=== PATIENT | female | born 1960 | race Caucasian/White ===

== ENCOUNTER 2025-02-17 16:08 | Inpatient (IN) | payer OTHER ==
--- NOTE | 2025-02-17 17:10 | ED ---
General Adult HPI - General Chief complaint: Recheck/Abnormal Lab/Rx Stated complaint: Transfer-Abn Labs Time Seen by Provider: 02/17/25 16:11 Source: patient, RN/MD, EMS, RN notes reviewed Mode of arrival: EMS Limitations: no limitations - History of Present Illness Initial comments: Patient is a 64-year-old female present to the emergency department as a transfer from [facility]. Patient had ultrasound done as an outpatient concerning for mass and was sent to the emergency department there. Patient requested transfer here. They did do further imaging including CT scan. There was concern for pulmonary embolism on the right side, IVC clot and mass involving the right hepatic and adrenal region. Heparin was started. Patient only has mild discomfort at times in the abdomen with pushing. No other complaints except for patient does admit to having some mild exertional dyspnea at times - Related Data Allergies Allergy/AdvReac Type Severity Reaction Status Date / Time No Known Allergies Allergy Verified 02/17/25 16:16 Review of Systems ROS Statement: Those systems with pertinent positive or pertinent negative responses have been documented in the HPI. ROS Other: All systems not noted in ROS Statement are negative. Constitutional: Denies: fever Eyes: Denies: eye pain ENT: Denies: ear pain Respiratory: Reports: as per HPI Gastrointestinal: Reports: as per HPI Musculoskeletal: Denies: back pain Past Medical History Past Medical History: No Reported History Past Surgical History: Section Smoking Status: Current every day smoker Past Alcohol Use History: Daily Past Drug Use History: None Reported General Exam Limitations: no limitations General appearance: alert, in no apparent distress Head exam: Present: normocephalic Eye exam: Present: normal appearance Neck exam: Present: normal inspection Respiratory exam: Present: normal lung sounds bilaterally Cardiovascular Exam: Present: regular rate, normal rhythm GI/Abdominal exam: Present: organomegaly (Hepatomegaly). Absent: tenderness Extremities exam: Present: normal inspection. Absent: pedal edema, calf tenderness Neurological exam: Present: alert Psychiatric exam: Present: normal affect, normal mood Skin exam: Present: normal color Course Vital Signs 02/17/25 02/17/25 16:09 16:19 Temperature 98.6 F Pulse Rate 82 Respiratory 16 16 Rate Blood Pressure 165/93 O2 Sat by Pulse 97 Oximetry Medical Decision Making - Medical Decision Making Was pt. sent in by a medical professional or institution (, PA, [facility]ER, urgent care, hospital, or [facility]...) When possible be specific @ -Patient sent from [facility] Did you speak to anyone other than the patient for history (EMS, parent, family, police, friend...)? What history was obtained from this source @ -Transferring physician Did you review nursing and triage notes (agree or disagree)? Why? @ -I reviewed and agree with nursing and triage notes Were old charts reviewed (outside hosp., previous admission, EMS record, old EKG, old radiological studies, urgent care reports/EKG's, [facility] records)? Report findings @ -Chart reviewed from [facility] Differential Diagnosis (chest pain, altered mental status, abdominal pain women, abdominal pain men, vaginal bleeding, weakness, fever, dyspnea, syncope, headache, dizziness, GI bleed, back pain, seizure, CVA, palpatations, mental health, musculoskeletal)? @ -Differential Abdominal Pain Women: Appendicitis, Cholecystitis, diverticulosis, ischemic bowel, pancreatitis, hepatitis, UTI, gastroenteritis, AAA, incarcerated hernia, bowel obstruction, constipation, inflammatory bowel, hepatitis, peptic ulcer disease, splenic infarction, perforated viscus, vulvitis, ovarian torsion, PID, kidney stone, placenta abruption, this is not meant to be an all-inclusive list Differential Dyspnea: Coronary syndrome, arrhythmia, tamponade, asthma, COPD, pulmonary embolism, pneumonia, pneumothorax, pulmonary effusion, anaphylaxis, diabetic ketoacidosis, flailed chest, pulmonary contusion, diaphragmatic rupture, anemia, neuromuscular, this is not meant to be an all-inclusive list. EKG interpreted by me (3pts min.). @ -As above X-rays interpreted by me (1pt min.). @ -None done CT interpreted by me (1pt min.). @ -None done U/S interpreted by me (1pt. min.). @ -None done What testing was considered but not performed or refused? (CT, X-rays, U/S, labs)? Why? @ -None What meds were considered but not given or refused? Why? @ -None Did you discuss the management of the patient with other professionals (professionals i.e. , DAILY, SHACKLER, lab, RT, psych nurse, social media senior associate, motor coach operator, teacher, facilities officer, disability case manager)? Give summary @ -[facility] to admit covering Dr. Elizabeth Was smoking cessation discussed for >3mins.? @ -No Was critical care preformed (if so, how long)? @ -31 minutes critical care time Were there social determinants of health that impacted care today? How? (Homelessness, low income, unemployed, alcoholism, drug addiction, transportation, low edu. Level, literacy, decrease access to med. care, longterm, rehab)? @ -No Was there de-escalation of care discussed even if they declined (Discuss DNR or withdrawal of care, Hospice)? DNR status @ -No What co-morbidities impacted this encounter? (DM, HTN, Smoking, COPD, CAD, Can cer, CVA, ARF, Chemo, Hep., AIDS, mental health diagnosis, sleep apnea, morbid obesity)? @ -None Was patient admitted / discharged? Hospital course, mention meds given and route, prescriptions, significant lab abnormalities, going to OR and other pertinent info. @ -Patient presents with new onset abdominal mass involving liver and adrenal region. Patient also has IVC clot and pulmonary embolism. Patient will be admitted with several consultants. Admission orders written. Patient updated. Undiagnosed new problem with uncertain prognosis? @ -No Drug Therapy requiring intensive monitoring for toxicity (Heparin, Nitro, Insulin, Cardizem)? @ -Heparin drip Were any procedures done? @ -No Diagnosis/symptom? @ -Pulmonary embolism, inferior vena cava thrombus, abdominal mass Acute, or Chronic, or Acute on Chronic? @ -Acute, acute, acute Uncomplicated (without systemic symptoms) or Complicated (systemic symptoms)? @ -Default Side effects of treatment? @ -No Exacerbation, Progression, or Severe Exacerbation? @ -No Poses a threat to life or bodily function? How? (Chest pain, USA, VT, pneumonia, PE, COPD, DKA, ARF, appy, cholecystitis, CVA, Diverticulitis, Homicidal, Suicidal, threat to staff... and all critical care pts) @ -Threat to pulmonary function and life Critical Care Time Critical Care Time: Yes Disposition Clinical Impression: Pulmonary embolism Disposition: ADMITTED IP TO THIS HOSP Condition: Serious Is patient prescribed a controlled substance at d/c from ED?: No Referrals: Rafaela Elizabeth MD [Primary Care Provider] - 1-2 days Time of Disposition: 17:10
[2025-02-17] MEDS ORDERED: NALOXONE 0.4 MG/ML 1 ML VIAL IV PRN (17:11)
[2025-02-17] MEDS: HEPARIN SOD,PORK IN 0.45% NACL 25,000 UNIT in 0.45% NACL 1 250ML.BAG IV SCH (17:31)
[2025-02-17] MEDS: PANTOPRAZOLE 40 MG/10 ML VIAL IV SCH (17:31)
[2025-02-18] MEDS: HEPARIN SODIUM 1,000 UN/ML (10ML VL) IV PRN (01:58)
--- NOTE | 2025-02-18 04:33 | P.CNPUL ---
History of Present Illness Consult date: 02/18/25 Requesting physician: Jae Packer Reason for consult: pulmonary embolism Chief complaint: Transfer from [facility] History of present illness: Patient is a 64-year-old female with past medical history significant for alcohol abuse, she drinks 6-7 beers per day. She also smokes cigarettes 3-4 cigarettes per day, previously more. Over 40 year pack-year smoking history. Recently, obtained medical insurance and followed up with a primary care provider. She had some abdominal distention, and was sent for an abdominal ultrasound, which was apparently concering for mass. Increasing abdominal distention first noticed 3 or 4 months ago. Sent to [facility] for further evaluation. Apparently, she did have a CT of the abdomen/pelvis remarkable for large heterogenous enhancing posterior right upper quadrant mass measuring up to 19 cm. Some focal regions of hyperattenuation suggesting intralesional hemorrhage. No other hemorrhage identified. Loss of fat plane wi th posterior right hepatic lobe and possible invasion. Reportedly, difficult to distinguish origin of mass due to mass effect on surrounding structures. Additional, right infrahilar heterogenous enhancing lesion which could represent metastasis. Trace bilateral pleural effusions. A filling defect was noted within the intrahepatic IVC. Dedicated chest CT angiogram remarkable for heterogenous filling appearance of the distal right main pulmonary artery extending to the right lower lobe segmental and subsegmental arteries. Findings were concerning for nonocclusive acute pulmonary emboli. No CT evidence of heart strain. Mediastinal and right hilar adenopathy highly concerning for metastasis was noted. Reportedly, right hilar mass causing abrupt cut off of the right lower lobe bronchus. Only the reports from the above-mentioned imaging are available, no CD is available for review. Patient was started on IV heparin and transferred to our facility. She is currently being evaluated in the emergency department, room 4. She is on room air. Not in respiratory distress. Denies shortness of breath, cough, hemoptysis, palpitations, syncopal events, chest pain. Endorses abdominal fullness and distention. Some tenderness with palpation of the right abdomen. Denies any nausea or vomiting, diarrhea, melena, hematochezia. Appetite has been good. Denies weight loss. Vital signs are stable. Review of Systems REVIEW OF SYSTEMS: CONSTITUTIONAL: Denies weight loss. EYES: Denies change in vision. EARS, NOSE, MOUTH, THROAT: Denies headaches, denies sore throat. CARDIOVASCULAR: Denies chest pain, palpitations or syncopal episodes. RESPIRATORY: See HPI GASTROINTESTINAL: See HPI GENITOURINARY: Denies hematuria, denies infections. MUSKULOSKELETAL: Denies pain, denies swelling. INTEGUMENTARY: Denies rash, denies eczema. NEUROLOGICAL: Denies recent memory loss, no recent seizure activity. PSYCHIATRIC: Denies anxiety, denies depression. HEMATOLOGIC/LYMPHATIC: Denies anemia, denies enlarged lymph node Past Medical History Past Medical History: No Reported History Past Surgical History: Section Smoking Status: Current every day smoker Past Alcohol Use History: Daily Past Drug Use History: None Reported Medications and Allergies Home Medications Medication Instructions Recorded Confirmed Type traZODone HCL [Desyrel] 50 - 100 mg PO DIRECTED PRN 02/17/25 02/17/25 History Allergies Allergy/AdvReac Type Severity Reaction Status Date / Time No Known Allergies Allergy Verified 02/17/25 17:27 Physical Exam Vitals: Vital Signs Temp Pulse Resp BP Pulse Ox 02/18/25 01:40 82 20 162/88 97 02/17/25 23:00 77 16 173/98 98 02/17/25 20:00 92 20 155/98 96 02/17/25 17:39 87 16 152/85 95 02/17/25 16:19 16 02/17/25 16:09 98.6 F 82 16 165/93 97 Intake and Output 02/17/25 02/17/25 02/18/25 14:59 22:59 06:59 Intake Total 63.136 Balance 63.136 Intake: Intake, IV Titration 63.136 Amount Heparin Sod,Pork in 0.45% 63.136 NaCl 25,000 unit In 0.45 % NaCl 1 250ml.bag @ 12 UNITS/KG/HR 7.457 mls/hr IV .Q24H [facility] Rx#: [id number] Other: Weight 62.142 kg GENERAL EXAM: Alert, 64-year-old female, sitting at the edge of the bed, comfortable in no apparent distress. HEAD: Normocephalic and atraumatic EYES: Normal reaction of pupils, equal size. NOSE: Clear with pink turbinates. THROAT: No erythema or exudates. NECK: No masses, no JVD. CHEST: No chest wall deformity. LUNGS: Equal air entry with no crackles, wheeze, rhonchi or dullness. On room air. No conversational dyspnea or accessory muscle use.. CVS: S1 and S2 normal with no audible murmur, regular rhythm. No extra heart sounds ABDOMEN: Abdominal distention with palpable mass. No guarding or rigidity. SPINE: No scoliosis or deformity SKIN: No rashes CENTRAL NERVOUS SYSTEM: No focal deficits, tone is normal in all 4 extremities. EXTREMITIES: There is no peripheral edema, clubbing, or cyanosis. Peripheral pulses are intact. Assessment and Plan Assessment: Multiple pulmonary emboli within the distal right main pulmonary artery extending to the right lower lobe segmental and subsegmental arteries. No CT evidence of right-sided heart strain. Additional, filling defect within the intrahepatic IVC. Mediastinal and hilar adenopathy with enlarged right hilar mass measuring 4.5 cm causing abrupt cut off of the right mainstem bronchus Nonspecific anterior right upper lobe 4 mm pulmonary nodule, could represent additional metastasis. Trace bilateral pleural effusions Large heterogenous right upper quadrant abdominal mass measuring up to 19 cm. Focal regions of hypoattenuation suggesting intralesional hemorrhage. Per the CT report difficult to distinguish origin of mass due to mass effect of surrounding structures. Daily alcohol use, chronic 6 to 7, 12 ounce beers per day drinker Chronic tobacco use, with over [id number] history Plan: Patient denies any pulmonary complaints Currently on room air Continue with IV heparin per protocol Patient is going to undergo workup for malignancy Could potentially undergo tissue sampling of patient's large abdominal mass Only CT reports are currently available, awaiting CD from [facility]. Case will reviewed with Dr. Cross Oncology is consulted Vascular surgery also consulted We will continue to follow, and additional recommendations will be forthcoming I have personally seen and examined the patient, performed the documentation and the assessment and plan as written. Number of minutes spent on the visit:20 Time with Patient: Greater than 30
[2025-02-18 04:36] LABS: Basophils # (A) 0.02 10*3/uL (0.00-0.10); Basophils % (A) 0.6 %; Eosinophils # (A) 0.16 10*3/uL (0.04-0.35); Eosinophils % (A) 4.5 %; HCT 41.4 % (37.2-46.3); HGB 13.3 g/dL (12.0-15.0); Lymphocytes # (A) 0.66 10*3/uL (0.90-5.00); Lymphocytes % (A) 18.5 %; MCH 25.2 pg (27.0-32.0); MCHC 32.1 g/dL (32.0-37.0); MCV 78.4 fL (80.0-97.0); Monocytes # (A) 0.43 10*3/uL (0.20-1.00); Monocytes % (A) 12.1 %; Neutrophils # (A) 2.28 10*3/uL (1.80-7.70); Neutrophils % (A) 64.0 %; Platelet Count 305 10*3/uL (140-440); RBC 5.28 10*6/uL (4.10-5.20); RDW 16.5 % (11.5-14.5); WBC 3.56 10*3/uL (4.50-10.00)
[2025-02-18 04:41] LABS: INR 1.1 (<1.2); Prothrombin Time 12.4 sec (10.0-12.5)
[2025-02-18 05:04] LABS: ALT 15 U/L (4-34); AST 51 U/L (14-36); African American GFR (CKD) >90 (>60 ml/min/1.73 sqM); Albumin 3.5 g/dL (3.5-5.0); Alkaline Phosphatase 81 U/L (38-126); Amylase 43 U/L (30-110); Anion Gap 10 mmol/L; Anion Gap 9 mmol/L; Blood Urea Nitrogen 5 mg/dL (7-17); Calcium 8.9 mg/dL (8.4-10.2); Calcium 9.0 mg/dL (8.4-10.2); Carbon Dioxide 26 mmol/L (22-30); Carbon Dioxide 27 mmol/L (22-30); Chloride 95 mmol/L (98-107); Glucose 79 mg/dL (74-99); Glucose 80 mg/dL (74-99); Lipase 132 U/L (23-300); Magnesium 1.6 mg/dL (1.6-2.3); Non-African American GFR(CKD) >90 (>60 ml/min/1.73 sqM); Potassium 4.1 mmol/L (3.5-5.1); Sodium 131 mmol/L (137-145); Total Protein 5.9 g/dL (6.3-8.2)
--- NOTE | 2025-02-18 08:14 | XR ---
EXAMINATION TYPE: XR chest 1V portable DATE OF EXAM: 02/18/2025 5:23 AM COMPARISON: None. CLINICAL INDICATION: Female, 64 years old with history of lung mass, TECHNIQUE: XR chest 1V portable views of the chest are obtained. FINDINGS: Demonstrated are scattered senescent parenchymal change. There is no evidence for focal infiltrate. The heart is stable. Hilar and mediastinal structures are within normal limits. Degenerative changes are seen of the dorsal spine. IMPRESSION: 1. Chronic changes without evidence for acute pulmonary disease. [facility], , 02/18/2025 8:12 AM
--- NOTE | 2025-02-18 10:36 | P.GSCN ---
History of Present Illness Consult date: 02/18/25 Reason for Consult: IVC thrombus Requesting physician: Jae Packer History of present illness: This is a pleasant 64-year-old female with medical history including daily smoker and daily alcohol use 6-7 beers a day who recently had gone to see her PCP after obtaining insurance and was concerned with abdominal distention and bloating. She was reportedly sent for abdominal ultrasound that showed a abdominal mass. She was told to go to the emergency department and had gone to [facility]. There she underwent imaging, chest CTA which was concerning for pulmonary embolism meeting asked and all and right hilar adenopathy right upper lobe 4 mm pulmonary nodule trace bilateral pleural effusions and CAT scan of the abdomen pelvis with contrast reported large heterogeneous enhancing right upper quadrant mass measuring up to 19 cm with focal regions of hyperattenuating suggesting intralesional hemorrhage. Also right infrahilar heterogeneous enhancing lesion and filling defect within the intrahepatic IVC corresponding to recent ultrasound favored to represent thrombus. Vascular surgery was consulted for IVC thrombus. Patient currently is without any complaints. States that [facility] wanted to transfer her down to [facility] however she did not want to go there secondary to her passing away there about a year ago and requested to be transferred to [facility]. [facility] and [facility] to this hospital. She currently denies any abdominal pain, chest pain, shortness of breath, nausea or vomiting. Denies any significant weight loss recently. Does have lower extremity swelling. Patient was started on IV heparin drip and transferred to this facility, remains on IV heparin drip at this time. Review of Systems A 14 point review systems was completed all pertinent positives and negatives as stated in the HPI. Past Medical History Past Medical History: No Reported History Past Surgical History: Section Smoking Status: Current every day smoker Past Alcohol Use History: Daily Past Drug Use History: None Reported Medications and Allergies Home Medications Medication Instructions Recorded Confirmed Type traZODone HCL [Desyrel] 50 - 100 mg PO DIRECTED PRN 02/17/25 02/17/25 History Allergies Allergy/AdvReac Type Severity Reaction Status Date / Time No Known Allergies Allergy Verified 02/17/25 17:27 Surgical - Exam Vital Signs Temp Pulse Resp BP Pulse Ox 98.6 F 82 16 165/93 97 02/17/25 16:09 02/17/25 16:09 02/17/25 16:09 02/17/25 16:09 02/17/25 16:09 General appearance: The patient is alert, oriented, appears in no acute distress. HET: Head is normocephalic and atraumatic. Pupils are equal and reactive. Neck: Supple. Heart: Regular. Lungs: Equal expansion, normal respiratory effort. Abdomen: Soft, palpable mass, nondistended. Extremities: Normal skin color and turgor. Lower extremity edema, left greater than right. Neurological: No focal deficits. Strength and sensation are grossly intact. Results - Labs 02/18/25 04:25 02/18/25 04:25 Abnormal Lab Results - Last 24 Hours (Table) 02/18/25 02/18/25 02/18/25 Range/Units 04:25 04:25 04:25 WBC 3.56 L (4.50-10.00) 10*3/uL RBC 5.28 H (4.10-5.20) 10*6/uL MCV 78.4 L (80.0-97.0) fL MCH 25.2 L (27.0-32.0) pg MPV 8.9 L (9.5-12.2) fL Lymphocytes # 0.66 L (0.90-5.00) 10*3/uL Sodium 131 L 131 L (137-145) mmol/L Chloride 95 L 95 L (98-107) mmol/L BUN 5 L 5 L (7-17) mg/dL Creatinine 0.44 L 0.41 L (0.52-1.04) mg/dL AST 51 H (14-36) U/L Total Protein 5.9 L (6.3-8.2) g/dL Diabetes panel 02/18/25 02/18/25 Range/Units 04:25 04:25 Sodium 131 L 131 L (137-145) mmol/L Potassium 4.1 4.1 (3.5-5.1) mmol/L Chloride 95 L 95 L (98-107) mmol/L Carbon Dioxide 26 27 (22-30) mmol/L BUN 5 L 5 L (7-17) mg/dL Creatinine 0.44 L 0.41 L (0.52-1.04) mg/dL Glucose 80 79 (74-99) mg/dL Calcium 8.9 9.0 (8.4-10.2) mg/dL AST 51 H (14-36) U/L ALT 15 (4-34) U/L Alkaline Phosphatase 81 (38-126) U/L Total Protein 5.9 L (6.3-8.2) g/dL Albumin 3.5 (3.5-5.0) g/dL Calcium panel 02/18/25 02/18/25 Range/Units 04:25 04:25 Calcium 8.9 9.0 (8.4-10.2) mg/dL Albumin 3.5 (3.5-5.0) g/dL Pituitary panel 02/18/25 02/18/25 Range/Units 04:25 04:25 Sodium 131 L 131 L (137-145) mmol/L Potassium 4.1 4.1 (3.5-5.1) mmol/L Chloride 95 L 95 L (98-107) mmol/L Carbon Dioxide 26 27 (22-30) mmol/L BUN 5 L 5 L (7-17) mg/dL Creatinine 0.44 L 0.41 L (0.52-1.04) mg/dL Glucose 80 79 (74-99) mg/dL Calcium 8.9 9.0 (8.4-10.2) mg/dL Adrenal panel 02/18/25 02/18/25 Range/Units 04:25 04:25 Sodium 131 L 131 L (137-145) mmol/L Potassium 4.1 4.1 (3.5-5.1) mmol/L Chloride 95 L 95 L (98-107) mmol/L Carbon Dioxide 26 27 (22-30) mmol/L BUN 5 L 5 L (7-17) mg/dL Creatinine 0.44 L 0.41 L (0.52-1.04) mg/dL Glucose 80 79 (74-99) mg/dL Calcium 8.9 9.0 (8.4-10.2) mg/dL Total Bilirubin 0.9 (0.2-1.3) mg/dL AST 51 H (14-36) U/L ALT 15 (4-34) U/L Alkaline Phosphatase 81 (38-126) U/L Total Protein 5.9 L (6.3-8.2) g/dL Albumin 3.5 (3.5-5.0) g/dL Assessment and Plan Assessment: 1. IVC thrombus per CT abdomen pelvis at outside facility 2. Pulmonary embolism 3. Large right upper quadrant abdominal mass measuring 19 cm 4. Right infrahilar heterogeneous enhancing lesion 5. Mediastinal and right hilar adenopathy 6. Anterior right upper lobe 4 mm pulmonary nodule 7. Trace bilateral pleural effusions 8. Current daily smoker 9. Daily alcohol use, 6-7 beers daily Plan: Continue with IV heparin infusion. Due to extensive findings on CT angiogram chest and CT abdomen and pelvis with large abdominal mass would recommend patient get transferred to higher level care tertiary center for further evaluation and management multiple complex findings CT imaging. This was discussed with patient who is agreeable to transfer. Also discussed with primary medical team. Continue with recommendations from other consultants. Thank you for this consultation. The impression and plan of care has been dictated as directed. I performed a history and examination of this patient, discussed the same with the dictator. I agree with the dictator's note ,documented as a scribe. Any additional findings or plans will be noted.
[2025-02-18] MEDS: diazePAM 2 MG TAB PO SCH (11:32)
[2025-02-18] MEDS: NICOTINE 21MG/24HR PATCH TRANSDERM SCH (11:33)
[2025-02-18] MEDS: IPRATROPIUM-ALBUTEROL 3 ML NEB INHALATION SCH (11:43)
[2025-02-18] MEDS: BUDESONIDE 1 MG/2 ML NEBU INHALATION SCH (11:44)
--- NOTE | 2025-02-18 12:40 | P.HPIM ---
History of Present Illness H&P Date: 02/18/25 Chief Complaint: Abdominal mass Pleasant 64-year-old patient who follows with Dr. Rafaela Elizabeth. Patient did not have insurance had noticed that her abdomen had been increasing in size for about 2 months. Appetite is fair. No change in bowel pattern. Occasionally short of breath strictly doing stairs. Some lower extremity edema for about a month. She got insurance and finally decided to see a family doctor. daily smoker and daily alcohol use 6-7 beers a day . sent for abdominal ultrasound that showed a abdominal mass. She was told to go to the emergency department and had gone to [facility]. - chest CTA which was concerning for pulmonary embolism right hilar adenopathy right upper lobe 4 mm pulmonary nodule trace bilateral pleural effusions and CAT scan of the abdomen pelvis with contrast reported large heterogeneous enhancing right upper quadrant mass measuring up to 19 cm with focal regions of hyperattenuating suggesting intralesional hemorrhage. Also right infrahilar heterogeneous enhancing lesion and filling defect within the intrahepatic IVC corresponding to recent ultrasound favored to represent thrombus. Vascular surgery was consulted States that [facility] wanted to transfer her down to [facility] however she did not want to go there secondary to her passing away there about a year ago and requested to be transferred to [facility]. She currently denies any abdominal pain, chest pain,. started on IV heparin drip and transferred to this facility Patient seen and daughter at the bedside. Review of systems: GEN.: None EYES: None HEENT: None NECK: None RESPIRATORY: As above CARDIOVASCULAR: None GASTROINTESTINAL: As above GENITOURINARY: None MUSCULOSKELETAL: None LYMPHATICS: None HEMATOLOGICAL: None PSYCHIATRY: None NEUROLOGICAL: None Social history: Lives alone. Retired from factory. Smokes about a pack a day for close to 40 years and drinks about 6-7 beers a day for close to 40 years. Physical examination: VITAL SIGNS: 98.6, 77, 16, 161 x 89, 98% room air GENERAL: BMI 24.3, sitting bed awake not in distress. EYES: Pupils equal. Conjunctiva aries l. HEENT: External appearance of nose and ears normal, oral cavity grossly normal. NECK: JVD not raised; masses not palpable. HEART: First and second heart sounds are normal; some edema. LUNGS: Respiratory rate increased, diminished breath sound. ABDOMEN: [Soft, upper abdomen ill-defined mass, bowel sounds present PSYCH: Alert and oriented x3; mood and affect aries l. MUSCULOSKELETAL:No Clubbing/cyanosis;muscles-grossly intact NEUROLOGICAL: Cranial nerves grossly intact; no facial asymmetry, power and sensation grossly intact. LYMPHATICS: No lymph nodes palpable in the axilla and neck INVESTIGATIONS, reviewed in the clinical context: February 18, 2025: White count 3.5 hemoglobin 13.3 platelets 305 sodium 131 potassium 4.1 BUN 5 creatinine 0.4 Chest x-ray film personally reviewed by me-hyperinflation. Prominent hilum Review [facility]: CT angio chest PE protocol: Heterogeneous filling appearance of the distal right main pulmonary artery extending into the right lower lobe segmental and subsegmental pulmonary arteries. Concerning for nonocclusive acute pulm embolism. No evidence of right heart strain. Mediastinal right hilar adenopathy. Right hilar adenopathy causing abrupt cut off of the right lower lobe bronchus. Trace bilateral pleural effusions. CT abdomen pelvis with contrast: Large heterogeneous enhancing posterior right upper quadrant mass measuring 19 cm. Some focal regions of hypoattenuating suggesting intralesional hemorrhage. This causes mass effect on the surrounding structures. Difficult to distinguish origin of mass. Right infrahilar heterogeneous enhancing lesion partially visualized. Filling defect within the intrahepatic IVC corresponding to recent ultrasound. Sigmoid diverticulosis. Assessment plan - Acute pulmonary embolism secondary to underlying metastatic disease No evidence of heart strain on CT scan. IV heparin per protocol - IV heparin monitoring per protocol - Right upper quadrant mass with possible involvement of the liver and pulmonary lymphadenopathy. Metastatic disease. Primary unknown. Oncology consulted. - Inferior vena cava thrombus Vascular surgery consulted. IV heparin. Patient does not want to be transferred to outside hospital. - COPD in t current smoker. Moderate DuoNeb 3 times daily. Nebulized Pulmicort - Chronic nicotine dependence cigarette smoker Nicotine patch 21 - Alcohol use disorder normally drinks 6-7 beers a day. CIWA scale. Valium 2 mg twice daily for DT prophylaxis Care was discussed with patient son and daughter at bedside. Questions answered. Consultations to vascular, pulmonary, oncology. Past Medical History Past Medical History: No Reported History Past Surgical History: Section Smoking Status: Current every day smoker Past Alcohol Use History: Daily Past Drug Use History: None Reported Medications and Allergies Home Medications Medication Instructions Recorded Confirmed Type traZODone HCL [Desyrel] 50 - 100 mg PO DIRECTED PRN 02/17/25 02/17/25 History Allergies Allergy/AdvReac Type Severity Reaction Status Date / Time No Known Allergies Allergy Verified 02/17/25 17:27 Physical Exam Vitals: Vital Signs Temp Pulse Resp BP Pulse Ox 02/18/25 04:49 77 16 161/89 98 02/18/25 01:40 82 20 162/88 97 02/17/25 23:00 77 16 173/98 98 02/17/25 20:00 92 20 155/98 96 02/17/25 17:39 87 16 152/85 95 02/17/25 16:19 16 02/17/25 16:09 98.6 F 82 16 165/93 97 Intake and Output 02/17/25 02/18/25 02/18/25 22:59 06:59 14:59 Intake Total 63.136 Balance 63.136 Intake: Intake, IV Titration 63.136 Amount Heparin Sod,Pork in 0.45% 63.136 NaCl 25,000 unit In 0.45 % NaCl 1 250ml.bag @ 12 UNITS/KG/HR 7.457 mls/hr IV .Q24H [facility] Rx#: [id number] Other: Weight 62.142 kg Results CBC & Chem 7: 02/18/25 04:25 02/18/25 04:25 Labs: Abnormal Lab Results - Last 24 Hours (Table) 02/18/25 02/18/25 02/18/25 Range/Units 04:25 04:25 04:25 WBC 3.56 L (4.50-10.00) 10*3/uL RBC 5.28 H (4.10-5.20) 10*6/uL MCV 78.4 L (80.0-97.0) fL MCH 25.2 L (27.0-32.0) pg MPV 8.9 L (9.5-12.2) fL Lymphocytes # 0.66 L (0.90-5.00) 10*3/uL Sodium 131 L 131 L (137-145) mmol/L Chloride 95 L 95 L (98-107) mmol/L BUN 5 L 5 L (7-17) mg/dL Creatinine 0.44 L 0.41 L (0.52-1.04) mg/dL AST 51 H (14-36) U/L Total Protein 5.9 L (6.3-8.2) g/dL
--- NOTE | 2025-02-18 15:22 | P.CONS ---
History of Present Illness - Reason for Consult Consult date: 02/18/25 - History of Present Illness Patient is a 64-year-old female with significant medical history for alcohol abuse, former tobacco user. She is a transfer from [facility]. She arrived there originally for concerns of abdominal distention. Patient had ultrasound concerning for abdominal mass. CT of abdomen pelvis CT of the abdomen/pelvis remarkable for large heterogenous enhancing posterior right upper quadrant mass measuring up to 19 cm. Some focal regions of hyperattenuation suggesting intralesional hemorrhage. No other hemorrhage identified. However it is difficult to distinguish origin of mass due to mass effect on surrounding structures. Chest CT angiogram remarkable for heterogenous filling appearance of the distal right main pulmonary artery extending to the right lower lobe segmental and subsegmental arteries. Findings were concerning for non-occlusive acute pulmonary emboli. Mediastinal and right hilar adenopathy highly concerning for metastasis was noted. Right upper lobe 4 mm pulmonary nodule was noted as well. She admits to a [id number] smoking history. Currently smokes 3 to 4 cigarettes a day. Drinks 6-7 beers daily. Denies any personal history of cancer. Denies any weight loss, nausea, vomiting, hematuria, hemoptysis, edema. Patient states she has normal bowel movements. She states she has never had a colonoscopy. Last mammogram was over a few years ago, but unsure when exactly. Past Medical History Past Medical History: No Reported History Past Surgical History: Section Smoking Status: Current every day smoker Past Alcohol Use History: Daily Past Drug Use History: None Reported Medications and Allergies Home Medications Medication Instructions Recorded Confirmed Type traZODone HCL [Desyrel] 50 - 100 mg PO DIRECTED PRN 02/17/25 02/17/25 History Allergies Allergy/AdvReac Type Severity Reaction Status Date / Time No Known Allergies Allergy Verified 02/17/25 17:27 Physical Exam Vitals: Vital Signs Temp Pulse Resp BP Pulse Ox 02/18/25 04:49 77 16 161/89 98 02/18/25 01:40 82 20 162/88 97 02/17/25 23:00 77 16 173/98 98 02/17/25 20:00 92 20 155/98 96 02/17/25 17:39 87 16 152/85 95 02/17/25 16:19 16 02/17/25 16:09 98.6 F 82 16 165/93 97 Intake and Output 02/17/25 02/18/25 02/18/25 22:59 06:59 14:59 Intake Total 63.136 80.471 Balance 63.136 80.471 Intake: Intake, IV Titration 63.136 80.471 Amount Heparin Sod,Pork in 0.45% 63.136 80.471 NaCl 25,000 unit In 0.45 % NaCl 1 250ml.bag @ 12 UNITS/KG/HR 7.457 mls/hr IV .Q24H [facility] Rx#: [id number] Other: Weight 62.142 kg General : The patient is alert, oriented, appears in no acute distress. Heart: Regular S1 and S2. Lungs: CTA bilaterally, equal expansion, normal respiratory effort. Abdomen: Soft, palpable mass, non-distended. Extremities: Trace lower extremity edema, left greater than right. Neurological: No focal deficits. Strength and sensation are grossly intact. Results CBC & Chem 7: 02/20/25 05:53 02/18/25 04:25 Labs: Abnormal Lab Results - Last 24 Hours (Table) 02/18/25 02/18/25 02/18/25 Range/Units 04:25 04:25 04:25 WBC 3.56 L (4.50-10.00) 10*3/uL RBC 5.28 H (4.10-5.20) 10*6/uL MCV 78.4 L (80.0-97.0) fL MCH 25.2 L (27.0-32.0) pg MPV 8.9 L (9.5-12.2) fL Lymphocytes # 0.66 L (0.90-5.00) 10*3/uL Sodium 131 L 131 L (137-145) mmol/L Chloride 95 L 95 L (98-107) mmol/L BUN 5 L 5 L (7-17) mg/dL Creatinine 0.44 L 0.41 L (0.52-1.04) mg/dL AST 51 H (14-36) U/L Total Protein 5.9 L (6.3-8.2) g/dL Assessment and Plan Assessment: #. IVC thrombus per CT abdomen pelvis at outside facility #. Pulmonary embolism #. Large right upper quadrant abdominal mass measuring 19 cm #. Right infrahilar heterogeneous enhancing lesion #. Mediastinal and right hilar adenopathy #. Anterior right upper lobe 4 mm pulmonary nodule Continue IV heparin. CT and complete abdominal ultrasound from [facility] reviewed with patient. Will order repeat abdominal U/S. Discussed with patient the need for biopsy to determine origin from mass. Patient agreeable. It is possible that the origin is from lung mass or abdominal mass, or possibly two separate malignancies. Consulted interventional radiology for biopsy, seen by Dr. Treadwell and will go forward with biopsy. Heparin will be placed on hold 4 hours prior to procedure. Vascular surgery was consulted. Recommending transfer. Patient does not want to be transferred to outside hospital. Thank you for this consultation. Will continue to follow throughout duration of admission. Please not hesitate to ask any further questions. Plan: Add: As above. The patient was personally seen, examined, and management plan formulated, with the resident History/physical exam as above New finding of large abdominal mass, of unclear origin. At this time it is not known if this is primary, or represents metastasis. Similarly suspicious right lung lesion, also unknown if primary versus metastatic. Pulmonary embolus, nonocclusive, possibly incidental finding. Patient is on IV heparin. Plan at this time is to proceed with biopsy of the abdominal mass first, as it is more accessible. Case discussed in detail with pulmonary service. We will discuss with IR, if they can access this lesion. If so, the patient will remain on IV heparin, until the biopsy is performed. heparin can be discontinued 2 to 4 hours prior to the procedure. She can resume anticoagulation postprocedure. At this time it is not clear which lesion represents the primary and which, metastasis. In addition there is also possibility of 2 primaries. Depending on the pathology from the abdominal mass, we may need biopsy of the lung lesion. Discussed in detail with pulmonary service. - Radiology report mentions the possibility of hemorrhage in the large abdominal mass. However the patient's hemoglobin is normal. Monitor hemoglobin while on IV heparin.
--- NOTE | 2025-02-19 15:41 | P.PN ---
Subjective Progress Note Date: 02/19/25 Patient is a 64-year-old female with past medical history significant for alcohol abuse, she drinks 6-7 beers per day. She also smokes cigarettes 3-4 cigarettes per day, previously more. Over 40 year pack-year smoking history. Recently, obtained medical insurance and followed up with a primary care provi candelaria. She had some abdominal distention, and was sent for an abdominal ultrasound, which was apparently concering for mass. Increasing abdominal distention first noticed 3 or 4 months ago. Sent to [facility] for further evaluation. Apparently, she did have a CT of the abdomen/pelvis remarkable for large heterogenous enhancing posterior right upper quadrant mass measuring up to 19 cm. Some focal regions of hyperattenuation suggesting intralesional hemorrhage. No other hemorrhage identified. Loss of fat plane with posterior right hepatic lobe and possible invasion. Reportedly, difficult to distinguish origin of mass due to mass effect on surrounding structures. Additional, right infrahilar heterogenous enhancing lesion which could represent metastasis. Trace bilateral pleural effusions. A filling defect was noted within the intrahepatic IVC. Dedicated chest CT angiogram remarkable for heterogenous filling appearance of the distal right main pulmonary artery extend ing to the right lower lobe segmental and subsegmental arteries. Findings were concerning for nonocclusive acute pulmonary emboli. No CT evidence of heart strain. Mediastinal and right hilar adenopathy highly concerning for metastasis was noted. Reportedly, right hilar mass causing abrupt cut off of the right lower lobe bronchus. Only the reports from the above-mentioned imaging are available, no CD is available for review. Patient was started on IV heparin and transferred to our facility. She is currently being evaluated in the emergency department, room 4. She is on room air. Not in respiratory distress. Denies shortness of breath, cough, hemoptysis, palpitations, syncopal events, chest pain. Endorses abdominal fullness and distention. Some tenderness with palpation of the right abdomen. Denies any nausea or vomiting, diarrhea, melena, hematochezia. Appetite has been good. Denies weight loss. Vital signs are stable. The patient is seen today February 19, 2025 in follow-up on the selective care unit. She is currently sitting up in bed. Awake and alert in no acute distress. Denies any worsening shortness of breath, cough or congestion. She is maintaining good O2 saturations in the 90s on room air oxygen. She remains on a heparin drip. Remains on DuoNeb inhalations. NicoDerm patch in place. No new labs today. Plan is for interventional radiology to proceed with a biopsy of the abdominal mass. Objective - Vital Signs Vital signs: Vital Signs Temp 98.3 F 02/18/25 22:00 Pulse 88 02/19/25 14:08 Resp 16 02/19/25 12:15 BP 153/94 02/19/25 12:15 Pulse Ox 94 L 02/19/25 12:15 FiO2 Intake & Output 02/18/25 02/19/25 02/19/25 18:59 06:59 18:59 Intake Total 168.095 721.688 4019 Balance 168.095 990.867 3885 Weight 62.142 kg 62.3 kg Intake: IV 20 Invasive Line 2 20 Intake, IV Titration 168.095 90.263 Amount Heparin Sod,Pork in 0.45% 168.095 90.263 NaCl 25,000 unit In 0.45 % NaCl 1 250ml.bag @ 12 UNITS/KG/HR 7.457 mls/hr IV .Q24H REPLACED BY [facility] Rx#: [id number] Oral [id number] [id number] Other: Voiding Method Toilet Toilet # Voids 1 - Exam GENERAL EXAM: Alert, 64-year-old female, sitting up in bed, on room air oxygen, comfortable in no apparent distress. HEAD: Normocephalic and atraumatic EYES: Normal reaction of pupils, equal size. NOSE: Clear with pink turbinates. THROAT: No erythema or exudates. NECK: No masses, no JVD. CHEST: No chest wall deformity. LUNGS: Equal air entry with no crackles, wheeze, rhonchi or dullness. No conversational dyspnea or accessory muscle use. CVS: S1 and S2 normal with no audible murmur, regular rhythm. No extra heart sounds ABDOMEN: Abdominal distention with palpable mass. No guarding or rigidity. SPINE: No scoliosis or deformity SKIN: No rashes CENTRAL NERVOUS SYSTEM: No focal deficits, tone is normal in all 4 extremities. EXTREMITIES: There is no peripheral edema, clubbing, or cyanosis. Peripheral pulses are intact. - Labs CBC & Chem 7: 02/18/25 04:25 02/18/25 04:25 Labs: Abnormal Lab Results - Last 24 Hours (Table) 02/19/25 02/19/25 Range/Units 00:17 07:01 APTT 30.4 H 43.2 H (22.0-30.0) sec Assessment and Plan Assessment: Multiple pulmonary emboli within the distal right main pulmonary artery extending to the right lower lobe segmental and subsegmental arteries. No CT evidence of right-sided heart strain. Additional, filling defect within the intrahepatic IVC. Mediastinal and hilar adenopathy with enlarged right hilar mass measuring 4.5 cm causing abrupt cut off of the right mainstem bronchus Nonspecific anterior right upper lobe 4 mm pulmonary nodule, could represent additional metastasis. Trace bilateral pleural effusions Large heterogenous right upper quadrant abdominal mass measuring up to 19 cm. Focal regions of hypoattenuation suggesting intralesional hemorrhage. Per the CT report difficult to distinguish origin of mass due to mass effect of surrounding structures. Daily alcohol use, chronic 6 to 7, 12 ounce beers per day drinker Chronic tobacco use, with over 75-ooqu-ilim history Plan: The patient was seen and evaluated Medications reviewed Continued on a heparin drip Continued on DuoNeb and elations Continued on Pulmicort inhalations Educated regarding smoking cessation NicoDerm patch in place Stable and on room air oxygen Awaiting biopsy of the abdominal mass Observe for signs of delirium May require CIWA protocol We will continue to follow I have personally seen and examined the patient, performed the documentation and the assessment and plan as written. Number of minutes spent on the visit: 10 Dictation was produced using [employer] dictation software. Please excuse any grammatical, word or spelling errors.
--- NOTE | 2025-02-19 17:37 | P.PN ---
Progress Note - Text Progress Note Date: 02/19/25 Chief Complaint: Abdominal mass Pleasant 64-year-old patient who follows with Dr. Rafaela Elizabeth. Patient did not have insurance had noticed that her abdomen had been increasing in size for about 2 months. Appetite is fair. No change in bowel pattern. Occasionally short of breath strictly doing stairs. Some lower extremity edema for about a month. She got insurance and finally decided to see a family doctor. daily smoker and daily alcohol use 6-7 beers a day . sent for abdominal ultrasound that showed a abdominal mass. She was told to go to the emergency department and had gone to [facility]. - chest CTA which was concerning for pulmonary embolism right hilar adenopathy right upper lobe 4 mm pulmonary nodule trace bilateral pleural effusions and CAT scan of the abdomen pelvis with contrast reported large heterogeneous enhancing right upper quadrant mass measuring up to 19 cm with focal regions of hyperattenuating suggesting intralesional hemorrhage. Also right infrahilar heterogeneous enhancing lesion and filling defect within the intrahepatic IVC corresponding to recent ultrasound favored to represent thrombus. Vascular surgery was consulted States that [facility] wanted to transfer her down to [facility] however she did not want to go there secondary to her passing away there about a year ago and requested to be transferred to [facility]. She currently denies any abdominal pain, chest pain,. started on IV heparin drip and transferred to this facility Patient seen and daughter at the bedside. February 19: Sitting in bed. Getting IV heparin. Discussed with Dr. Madison For biopsy on Saturday when heparin will be held. Given the clinical presentation radiological finding possibility of 2 malignancies. Breathing better. On Valium for DVT prophylaxis Active Medications Acetaminophen (Acetaminophen Tab 325 Mg Tab) 650 mg PO Q6HR PRN PRN Reason: Fever and/ or Pain Albuterol/Ipratropium (Ipratropium-Albuterol 3 Ml Neb) 3 ml INHALATION RT-TID [facility] Last Admin: 02/19/25 13:57 Dose: 3 ml Budesonide (Budesonide 1 Mg/2 Ml Nebu) 1 mg INHALATION RT-BID [facility] Last Admin: 02/19/25 09:07 Dose: 1 mg Diazepam (Diazepam 2 Mg Tab) 2 mg PO BID [facility] Last Admin: 02/19/25 08:41 Dose: 2 mg Heparin Sodium (Porcine) (Heparin Sodium 1,000 Un/Ml (10ml Vl)) 0 unit IV PER PROTOCOL PRN; Protocol PRN Reason: Low PTT Last Admin: 02/19/25 01:22 Dose: 3,100 unit Heparin Sodium/Sodium Chloride (25,000 unit/ Sodium Chloride) 250 mls @ 7.457 mls/hr IV .Q24H [facility]; Protocol Last Titration: 02/19/25 01:22 Dose: 24 units/kg/hr, 14.914 mls/hr Naloxone HCl (Naloxone 0.4 Mg/Ml 1 Ml Vial) 0.2 mg IV Q2M PRN PRN Reason: Opioid Reversal Nicotine (Nicotine 21mg/24hr Patch) 1 patch TRANSDERM DAILY [facility] Last Admin: 02/19/25 08:41 Dose: 1 patch Trazodone HCl (Trazodone Hcl 50 Mg Tab) 50 - 100 mg PO HS PRN PRN Reason: Insomnia Social history: Lives alone. Retired from factory. Smokes about a pack a day for close to 40 years and drinks about 6-7 beers a day for close to 40 years. Physical examination: VITAL SIGNS: Afebrile, 94, 16, 153 x 77, 93% room air GENERAL: BMI 24.3, sitting bed awake comfortable EYES: Pupils equal. Conjunctiva aries l. HEENT: External appearance of nose and ears normal, oral cavity grossly normal. NECK: JVD not raised; masses not palpable. HEART: First and second heart sounds are normal; some edema. LUNGS: Respiratory rate increased, diminished breath sound. ABDOMEN: [Soft, upper abdomen ill-defined mass, bowel sounds present PSYCH: Alert and oriented x3; mood and affect aries l. MUSCULOSKELETAL:No Clubbing/cyanosis;muscles-grossly intact INVESTIGATIONS, reviewed in the clinical context: February 18, 2025: White count 3.5 hemoglobin 13.3 platelets 305 sodium 131 potassium 4.1 BUN 5 creatinine 0.4 Chest x-ray film personally reviewed by me-hyperinflation. Prominent hilum Review [facility]: CT angio chest PE protocol: Heterogeneous filling appearance of the distal right main pulmonary artery extending into the right lower lobe segmental and subsegmental pulmonary arteries. Concerning for nonocclusive acute pulm embolism. No evidence of right heart strain. Mediastinal right hilar adeno hasmukh. Right hilar adenopathy causing abrupt cut off of the right lower lobe bronchus. Trace bilateral pleural effusions. CT abdomen pelvis with contrast: Large heterogeneous enhancing posterior right upper quadrant mass measuring 19 cm. Some focal regions of hypoattenuating suggesting intralesional hemorrhage. This causes mass effect on the surrounding structures. Difficult to distinguish origin of mass. Right infrahilar heterogeneous enhancing lesion partially visualized. Filling defect within the intrahepatic IVC corresponding to recent ultrasound. Sigmoid diverticulosis. Assessment plan - Acute pulmonary embolism secondary to underlying metastatic disease No evidence of right heart strain on CT scan. IV heparin per protocol - IV heparin monitoring per protocol - Right upper quadrant mass with possible involvement of the liver and pulmonary lymphadenopathy. Metastatic disease. Primary unknown. 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 Not for any intervention currently. . IV heparin. Patient does not want to be transferred to outside hospital. - COPD in t current smoker. Moderate DuoNeb 3 times daily. Nebulized Pulmicort - Chronic nicotine dependence cigarette smoker Nicotine patch 21 - Alcohol use disorder normally drinks 6-7 beers a day. CIWA scale. Valium 2 mg twice daily for DT prophylaxis Consult to interventional radiology for abdominal mass biopsy Past Medical History Past Medical History: No Reported History Past Surgical History: Section Smoking Status: Current every day smoker Past Alcohol Use History: Daily Past Drug Use History: None Reported
[2025-02-19] MEDS: ACETAMINOPHEN TAB 325 MG TAB PO PRN (17:45)
[2025-02-19 18:03] LABS: HCT 43.7 % (37.2-46.3); HGB 14.0 g/dL (12.0-15.0); MCH 25.5 pg (27.0-32.0); MCHC 32.0 g/dL (32.0-37.0); MCV 79.7 fL (80.0-97.0); Platelet Count 355 10*3/uL (140-440); RBC 5.48 10*6/uL (4.10-5.20); RDW 16.6 % (11.5-14.5); WBC 4.89 10*3/uL (4.50-10.00)
[2025-02-20 07:23] LABS: Basophils # (A) 0.03 10*3/uL (0.00-0.10); Basophils % (A) 0.8 %; Eosinophils # (A) 0.10 10*3/uL (0.04-0.35); Eosinophils % (A) 2.8 %; HCT 38.3 % (37.2-46.3); HGB 12.4 g/dL (12.0-15.0); Lymphocytes # (A) 0.69 10*3/uL (0.90-5.00); Lymphocytes % (A) 19.4 %; MCH 25.4 pg (27.0-32.0); MCHC 32.4 g/dL (32.0-37.0); MCV 78.5 fL (80.0-97.0); Monocytes # (A) 0.52 10*3/uL (0.20-1.00); Monocytes % (A) 14.6 %; Neutrophils # (A) 2.20 10*3/uL (1.80-7.70); Neutrophils % (A) 61.8 %; Platelet Count 298 10*3/uL (140-440); RBC 4.88 10*6/uL (4.10-5.20); RDW 16.4 % (11.5-14.5); WBC 3.56 10*3/uL (4.50-10.00)
--- NOTE | 2025-02-20 12:08 | P.PN ---
Subjective Progress Note Date: 02/20/25 Patient is a 64-year-old female with past medical history significant for alcohol abuse, she drinks 6-7 beers per day. She also smokes cigarettes 3-4 cigarettes per day, previously more. Over 40 year pack-year smoking history. Recently, obtained medical insurance and followed up with a primary care provi candelaria. She had some abdominal distention, and was sent for an abdominal ultrasound, which was apparently concering for mass. Increasing abdominal distention first noticed 3 or 4 months ago. Sent to [facility] for further evaluation. Apparently, she did have a CT of the abdomen/pelvis remarkable for large heterogenous enhancing posterior right upper quadrant mass measuring up to 19 cm. Some focal regions of hyperattenuation suggesting intralesional hemorrhage. No other hemorrhage identified. Loss of fat plane with posterior right hepatic lobe and possible invasion. Reportedly, difficult to distinguish origin of mass due to mass effect on surrounding structures. Additional, right infrahilar heterogenous enhancing lesion which could represent metastasis. Trace bilateral pleural effusions. A filling defect was noted within the intrahepatic IVC. Dedicated chest CT angiogram remarkable for heterogenous filling appearance of the distal right main pulmonary artery extend ing to the right lower lobe segmental and subsegmental arteries. Findings were concerning for nonocclusive acute pulmonary emboli. No CT evidence of heart strain. Mediastinal and right hilar adenopathy highly concerning for metastasis was noted. Reportedly, right hilar mass causing abrupt cut off of the right lower lobe bronchus. Only the reports from the above-mentioned imaging are available, no CD is available for review. Patient was started on IV heparin and transferred to our facility. She is currently being evaluated in the emergency department, room 4. She is on room air. Not in respiratory distress. Denies shortness of breath, cough, hemoptysis, palpitations, syncopal events, chest pain. Endorses abdominal fullness and distention. Some tenderness with palpation of the right abdomen. Denies any nausea or vomiting, diarrhea, melena, hematochezia. Appetite has been good. Denies weight loss. Vital signs are stable. The patient is seen today February 19, 2025 in follow-up on the selective care unit. She is currently sitting up in bed. Awake and alert in no acute distress. Denies any worsening shortness of breath, cough or congestion. She is maintaining good O2 saturations in the 90s on room air oxygen. She remains on a heparin drip. Remains on DuoNeb inhalations. NicoDerm patch in place. No new labs today. Plan is for interventional radiology to proceed with a biopsy of the abdominal mass. The patient is seen today February 20, 2025 in follow-up on the selective care unit. She is awake and alert in no acute distress. Currently sitting up at the bedside. Denies any worsening shortness of breath, cough or congestion. Denies any worsening abdominal discomfort. She is continued on DuoNeb inhalations, Pulmicort inhalations. She remains on a heparin drip. NicoDerm patch in place. White count 3.5. Hemoglobin 12.4. Platelets 298. Objective - Vital Signs Vital signs: Vital Signs Temp 98.1 F 02/19/25 20:00 Pulse 94 02/20/25 11:49 Resp 18 02/20/25 11:49 BP 159/80 02/20/25 11:49 Pulse Ox 99 02/20/25 11:49 FiO2 Intake & Output 02/19/25 02/20/25 02/20/25 18:59 06:59 18:59 Intake Total 1387.602 790 203.01 Balance 1387.602 790 203.01 Weight 62.4 kg Intake: IV 20 10 Invasive Line 2 20 10 Intake, IV Titration 139.602 85.01 Amount Heparin Sod,Pork in 0.45% 139.602 85.01 NaCl 25,000 unit In 0.45 % NaCl 1 250ml.bag @ 12 UNITS/KG/HR 7.457 mls/hr IV .Q24H [facility] Rx#: [id number] Oral [id number] Other: Voiding Method Toilet Toilet # Voids 1 - Exam GENERAL EXAM: Alert, pleasant 64-year-old female, on room air oxygen, comfortable in no apparent distress. HEAD: Normocephalic and atraumatic EYES: Normal reaction of pupils, equal size. NOSE: Clear with pink turbinates. THROAT: No erythema or exudates. NECK: No masses, no JVD. CHEST: No chest wall deformity. LUNGS: Equal air entry with no crackles, wheeze, rhonchi or dullness. No conversational dyspnea or accessory muscle use. CVS: S1 and S2 normal with no audible murmur, regular rhythm. No extra heart sounds ABDOMEN: Abdominal distention with palpable mass. No guarding or rigidity. SPINE: No scoliosis or deformity SKIN: No rashes CENTRAL NERVOUS SYSTEM: No focal deficits, tone is normal in all 4 extremities. EXTREMITIES: There is no peripheral edema, clubbing, or cyanosis. Peripheral pulses are intact. - Labs CBC & Chem 7: 02/20/25 05:53 02/18/25 04:25 Labs: Abnormal Lab Results - Last 24 Hours (Table) 02/19/25 02/20/25 02/20/25 Range/Units 17:50 05:53 07:51 WBC 3.56 L (4.50-10.00) 10*3/uL RBC 5.48 H (4.10-5.20) 10*6/uL MCV 79.7 L 78.5 L (80.0-97.0) fL MCH 25.5 L 25.4 L (27.0-32.0) pg MPV 8.9 L 9.4 L (9.5-12.2) fL Lymphocytes # 0.69 L (0.90-5.00) 10*3/uL APTT 32.0 H (22.0-30.0) sec Assessment and Plan Assessment: Multiple pulmonary emboli within the distal right main pulmonary artery extending to the right lower lobe segmental and subsegmental arteries. No CT evidence of right-sided heart strain. Additional, filling defect within the intrahepatic IVC. Mediastinal and hilar adenopathy with enlarged right hilar mass measuring 4.5 cm causing abrupt cut off of the right mainstem bronchus Nonspecific anterior right upper lobe 4 mm pulmonary nodule, could represent additional metastasis. Trace bilateral pleural effusions Large heterogenous right upper quadrant abdominal mass measuring up to 19 cm. Focal regions of hypoattenuation suggesting intralesional hemorrhage. Per the CT report difficult to distinguish origin of mass due to mass effect of surroun ding structures. Daily alcohol use, chronic 6 to 7, 12 ounce beers per day drinker Chronic tobacco use, with over 24-qiwa-onna history Plan: The patient was seen and evaluated Medications and labs reviewed Continued on a heparin drip Continued on DuoNeb inhalations Continued on Pulmicort inhalations Educated regarding smoking cessation NicoDerm patch in place Stable and on room air oxygen Awaiting biopsy of the abdominal mass Possibility of 2 separate cancers being considered Observe for signs of delirium May require CIWA protocol We will continue to follow I have personally seen and examined the patient, performed the documentation and the assessment and plan as written. Number of minutes spent on the visit: 10 Dictation was produced using [employer] dictation software. Please excuse any grammatical, word or spelling errors.
--- NOTE | 2025-02-20 14:40 | P.PN ---
Progress Note - Text Progress Note Date: 02/20/25 Chief Complaint: Abdominal mass Pleasant 64-year-old patient who follows with Dr. Rafaela Elizabeth. Patient did not have insurance had noticed that her abdomen had been increasing in size for about 2 months. Appetite is fair. No change in bowel pattern. Occasionally short of breath strictly doing stairs. Some lower extremity edema for about a month. She got insurance and finally decided to see a family doctor. daily smoker and daily alcohol use 6-7 beers a day . sent for abdominal ultrasound that showed a abdominal mass. She was told to go to the emergency department and had gone to [facility]. - chest CTA which was concerning for pulmonary embolism right hilar adenopathy right upper lobe 4 mm pulmonary nodule trace bilateral pleural effusions and CAT scan of the abdomen pelvis with contrast reported large heterogeneous enhancing right upper quadrant mass measuring up to 19 cm with focal regions of hyperattenuating suggesting intralesional hemorrhage. Also right infrahilar heterogeneous enhancing lesion and filling defect within the intrahepatic IVC corresponding to recent ultrasound favored to represent thrombus. Vascular surgery was consulted States that [facility] wanted to transfer her down to [facility] however she did not want to go there secondary to her passing away there about a year ago and requested to be transferred to [facility]. She currently denies any abdominal pain, chest pain,. started on IV heparin drip and transferred to this facility Patient seen and daughter at the bedside. February 19: Sitting in bed. Getting IV heparin. Discussed with Dr. Jauregui. For biopsy on Saturday when heparin will be held. Given the clinical presentation radiological finding possibility of 2 malignancies. Breathing better. On Valium for DVT prophylaxis February 20: Up in the bed. IV heparin. For biopsy on Saturday. Breathing stable. Will switch the patient from nebulizers to Symbicort. 2 of her sisters are visiting. Patient cheerful cut back Valium to 1 mg twice daily Active Medications Acetaminophen (Acetaminophen Tab 325 Mg Tab) 650 mg PO Q6HR PRN PRN Reason: Fever and/ or Pain Last Admin: 02/20/25 08:13 Dose: 650 mg Budesonide/Formoterol Fumarate (Symbicort 160-4.5 Mcg Inhaler) 1 puff INHALATION RT-BID [facility]W Diazepam (Diazepam 2 Mg Tab) 2 mg PO BID [facility]W Last Admin: 02/20/25 08:13 Dose: 2 mg Heparin Sodium (Porcine) (Heparin Sodium 1,000 Un/Ml (10ml Vl)) 0 unit IV PER PROTOCOL PRN; Protocol PRN Reason: Low PTT Last Admin: 02/20/25 10:15 Dose: 1,550 unit Heparin Sodium/Sodium Chloride (25,000 unit/ Sodium Chloride) 250 mls @ 7.457 mls/hr IV .Q24H [facility]W; Protocol Last Titration: 02/20/25 10:14 Dose: 26 units/kg/hr, 16.157 mls/hr Naloxone HCl (Naloxone 0.4 Mg/Ml 1 Ml Vial) 0.2 mg IV Q2M PRN PRN Reason: Opioid Reversal Nicotine (Nicotine 21mg/24hr Patch) 1 patch TRANSDERM DAILY [facility]W Last Admin: 02/20/25 08:13 Dose: 1 patch Trazodone HCl (Trazodone Hcl 50 Mg Tab) 50 - 100 mg PO HS PRN PRN Reason: Insomnia Social history: Lives alone. Retired from factory. Smokes about a pack a day for close to 40 years and drinks about 6-7 beers a day for close to 40 years. Physical examination: VITAL SIGNS: 94, 18, 159 x 80, 99% room air GENERAL: BMI 24.3, sitting bed awake comfortable EYES: Pupils equal. Conjunctiva aries l. HEENT: External appearance of nose and ears normal, oral cavity grossly normal. NECK: JVD not raised; masses not palpable. HEART: First and second heart sounds are normal; some edema. LUNGS: Respiratory rate increased, diminished breath sound. ABDOMEN: [Soft, upper abdomen ill-defined mass, bowel sounds present PSYCH: Alert and oriented x3; mood and affect aries l. MUSCULOSKELETAL:No Clubbing/cyanosis;muscles-grossly intact INVESTIGATIONS, reviewed in the clinical context: February 18, 2025: White count 3.5 hemoglobin 13.3 platelets 305 sodium 131 potassium 4.1 BUN 5 creatinine 0.4 Chest x-ray film personally reviewed by me-hyperinflation. Prominent hilum Review [facility]: CT angio chest PE protocol: Heterogeneous filling appearance of the distal right main pulmonary artery extending into the right lower lobe segmental and subsegmental pulmonary arteries. Concerning for nonocclusive acute pulm embolism. No evidence of right heart strain. Mediastinal right hilar adenopathy. Right hilar adenopathy causing abrupt cut off of the right lower lobe bronchus. Trace bilateral pleural effusions. CT abdomen pelvis with contrast: Large heterogeneous enhancing posterior right upper quadrant mass measuring 19 cm. Some focal regions of hypoattenuating suggesting intralesional hemorrhage. This causes mass effect on the surrounding structures. Difficult to distinguish origin of mass. Right infrahilar heterogeneous enhancing lesion partially visualized. Filling defect within the intrahepatic IVC corresponding to recent ultrasound. Sigmoid diverticulosis. Assessment plan - Acute pulmonary embolism secondary to underlying metastatic disease No evidence of right heart strain on CT scan. IV heparin per protocol - IV heparin monitoring per protocol - Right upper quadrant mass with possible involvement of the liver and pulmonary lymphadenopathy. Metastatic disease. Primary unknown. 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 Not for any intervention currently. . IV heparin. Patient does not want to be transferred to outside hospital. - COPD in t current smoker. Moderate DuoNeb 3 times daily. Nebulized Pulmicort - Chronic nicotine dependence cigarette smoker Nicotine patch 21 - Alcohol use disorder normally drinks 6-7 beers a day. CIWA scale. Cut back Valium to 1 mg twice daily Continue current medication treatment plan. Cut back Valium. Switch to Symbicort. Stop DuoNeb and nebulized Pulmicort Past Medical History Past Medical History: No Reported History Past Surgical History: Section Smoking Status: Current every day smoker Past Alcohol Use History: Daily Past Drug Use History: None Reported
[2025-02-20] MEDS: diazePAM 2 MG TAB PO SCH (19:50)
[2025-02-20] MEDS: SYMBICORT 160-4.5 MCG INHALER INHALATION SCH (22:11)
--- NOTE | 2025-02-21 13:34 | P.PN ---
Subjective Progress Note Date: 02/21/25 Patient is a 64-year-old female with past medical history significant for alcohol abuse, she drinks 6-7 beers per day. She also smokes cigarettes 3-4 cigarettes per day, previously more. Over 40 year pack-year smoking history. Recently, obtained medical insurance and followed up with a primary care provi candelaria. She had some abdominal distention, and was sent for an abdominal ultrasound, which was apparently concering for mass. Increasing abdominal distention first noticed 3 or 4 months ago. Sent to [facility] for further evaluation. Apparently, she did have a CT of the abdomen/pelvis remarkable for large heterogenous enhancing posterior right upper quadrant mass measuring up to 19 cm. Some focal regions of hyperattenuation suggesting intralesional hemorrhage. No other hemorrhage identified. Loss of fat plane with posterior right hepatic lobe and possible invasion. Reportedly, difficult to distinguish origin of mass due to mass effect on surrounding structures. Additional, right infrahilar heterogenous enhancing lesion which could represent metastasis. Trace bilateral pleural effusions. A filling defect was noted within the intrahepatic IVC. Dedicated chest CT angiogram remarkable for heterogenous filling appearance of the distal right main pulmonary artery extend ing to the right lower lobe segmental and subsegmental arteries. Findings were concerning for nonocclusive acute pulmonary emboli. No CT evidence of heart strain. Mediastinal and right hilar adenopathy highly concerning for metastasis was noted. Reportedly, right hilar mass causing abrupt cut off of the right lower lobe bronchus. Only the reports from the above-mentioned imaging are available, no CD is available for review. Patient was started on IV heparin and transferred to our facility. She is currently being evaluated in the emergency department, room 4. She is on room air. Not in respiratory distress. Denies shortness of breath, cough, hemoptysis, palpitations, syncopal events, chest pain. Endorses abdominal fullness and distention. Some tenderness with palpation of the right abdomen. Denies any nausea or vomiting, diarrhea, melena, hematochezia. Appetite has been good. Denies weight loss. Vital signs are stable. The patient is seen today February 19, 2025 in follow-up on the selective care unit. She is currently sitting up in bed. Awake and alert in no acute distress. Denies any worsening shortness of breath, cough or congestion. She is maintaining good O2 saturations in the 90s on room air oxygen. She remains on a heparin drip. Remains on DuoNeb inhalations. NicoDerm patch in place. No new labs today. Plan is for interventional radiology to proceed with a biopsy of the abdominal mass. The patient is seen today February 20, 2025 in follow-up on the selective care unit. She is awake and alert in no acute distress. Currently sitting up at the bedside. Denies any worsening shortness of breath, cough or congestion. Denies any worsening abdominal discomfort. She is continued on DuoNeb inhalations, Pulmicort inhalations. She remains on a heparin drip. NicoDerm patch in place. White count 3.5. Hemoglobin 12.4. Platelets 298. The patient is seen today February 21, 2025 in follow-up on the selective care unit. She is currently sitting up in bed. Awake and alert in no acute distress. Denies any worsening shortness of breath, cough or congestion. No hemoptysis. She remains on Symbicort. Continued on a heparin drip. NicoDerm patch in place. No new labs today. Plan is for biopsy of the abdominal mass tomorrow. Objective - Vital Signs Vital signs: Vital Signs Temp 98.3 F 02/21/25 11:56 Pulse 91 02/21/25 11:56 Resp 16 02/21/25 11:56 BP 157/85 02/21/25 11:56 Pulse Ox 99 02/21/25 11:56 FiO2 Intake & Output 02/20/25 02/21/25 02/21/25 18:59 06:59 18:59 Intake Total 977.369 5175.64 490 Balance 527.098 5040.64 490 Weight 64.7 kg Intake: IV 20 20 Invasive Line 2 20 20 Intake, IV Titration 182.491 62.64 250 Amount Heparin Sod,Pork in 0.45% 182.491 62.64 250 NaCl 25,000 unit In 0.45 % NaCl 1 250ml.bag @ 12 UNITS/KG/HR 7.457 mls/hr IV .Q24H [facility] Rx#: [id number] Oral 354 1200 240 Other: Voiding Method Toilet Toilet # Voids 1 # Bowel Movements 0 - Exam GENERAL EXAM: Alert, 64-year-old female, on room air oxygen, sitting up in bed, comfortable in no apparent distress. HEAD: Normocephalic and atraumatic EYES: Normal reaction of pupils, equal size. NOSE: Clear with pink turbinates. THROAT: No erythema or exudates. NECK: No masses, no JVD. CHEST: No chest wall deformity. LUNGS: Equal air entry with no crackles, wheeze, rhonchi or dullness. No conversational dyspnea or accessory muscle use. CVS: S1 and S2 normal with no audible murmur, regular rhythm. No extra heart sounds ABDOMEN: Abdominal distention with palpable mass. No guarding or rigidity. SPINE: No scoliosis or deformity SKIN: No rashes CENTRAL NERVOUS SYSTEM: No focal deficits, tone is normal in all 4 extremities. EXTREMITIES: There is no peripheral edema, clubbing, or cyanosis. Peripheral pulses are intact. - Labs CBC & Chem 7: 02/20/25 05:53 02/18/25 04:25 Labs: Abnormal Lab Results - Last 24 Hours (Table) 02/20/25 02/20/25 Range/Units 15:47 21:54 APTT 35.4 H 42.7 H (22.0-30.0) sec Assessment and Plan Assessment: Multiple pulmonary emboli within the distal right main pulmonary artery e xtending to the right lower lobe segmental and subsegmental arteries. No CT evidence of right-sided heart strain. Additional, filling defect within the intrahepatic IVC. Mediastinal and hilar adenopathy with enlarged right hilar mass measuring 4.5 cm causing abrupt cut off of the right mainstem bronchus Nonspecific anterior right upper lobe 4 mm pulmonary nodule, could represent additional metastasis. Trace bilateral pleural effusions Large heterogenous right upper quadrant abdominal mass measuring up to 19 cm. Focal regions of hypoattenuation suggesting intralesional hemorrhage. Per the CT report difficult to distinguish origin of mass due to mass effect of surrounding structures Daily alcohol use, chronic 6 to 7, 12 ounce beers per day Chronic tobacco use, with over 35-hyzm-[id number] history Plan: The patient was seen and evaluated Medications reviewed Continued on a heparin drip Continued on Symbicort Educated regarding smoking cessation NicoDerm patch in place Stable and on room air oxygen Awaiting biopsy of the abdominal mass tomorrow Possibility of 2 separate cancers being considered We will continue to follow I have personally seen and examined the patient, performed the documentation and the assessment and plan as written. Number of minutes spent on the visit: 10 Dictation was produced using [employer] dictation software. Please excuse any grammatical, word or spelling errors.
--- NOTE | 2025-02-21 16:58 | P.PN ---
Progress Note - Text Progress Note Date: 02/21/25 Chief Complaint: Abdominal mass Pleasant 64-year-old patient who follows with Dr. Rafaela Elizabeth. Patient did not have insurance had noticed that her abdomen had been increasing in size for about 2 months. Appetite is fair. No change in bowel pattern. Occasionally short of breath strictly doing stairs. Some lower extremity edema for about a month. She got insurance and finally decided to see a family doctor. daily smoker and daily alcohol use 6-7 beers a day . sent for abdominal ultrasound that showed a abdominal mass. She was told to go to the emergency department and had gone to [facility]. - chest CTA which was concerning for pulmonary embolism right hilar adenopathy right upper lobe 4 mm pulmonary nodule trace bilateral pleural effusions and CAT scan of the abdomen pelvis with contrast reported large heterogeneous enhancing right upper quadrant mass measuring up to 19 cm with focal regions of hyperattenuating suggesting intralesional hemorrhage. Also right infrahilar heterogeneous enhancing lesion and filling defect within the intrahepatic IVC corresponding to recent ultrasound favored to represent thrombus. Vascular surgery was consulted States that [facility] wanted to transfer her down to [facility] however she did not want to go there secondary to her passing away there about a year ago and requested to be transferred to [facility]. She currently denies any abdominal pain, chest pain,. started on IV heparin drip and transferred to this facility Patient seen and daughter at the bedside. February 19: Sitting in bed. Getting IV heparin. Discussed with Dr. Jauregui. For biopsy on Saturday when heparin will be held. Given the clinical presentation radiological finding possibility of 2 malignancies. Breathing better. On Valium for DVT prophylaxis February 20: Up in the bed. IV heparin. For biopsy on Saturday. Breathing stable. Will switch the patient from nebulizers to Symbicort. 2 of her sisters are visiting. Patient cheerful cut back Valium to 1 mg twice daily February 21: Getting IV heparin. No new issues. On Symbicort. Will make n.p.o. after midnight. Spoke to nurse to follow-up in the morning with interventional radiology. Blood pressure has been running on the higher side. Will add Cozaar Active Medications Acetaminophen (Acetaminophen Tab 325 Mg Tab) 650 mg PO Q6HR PRN PRN Reason: Fever and/ or Pain Last Admin: 02/21/25 06:53 Dose: 650 mg Budesonide/Formoterol Fumarate (Symbicort 160-4.5 Mcg Inhaler) 1 puff INHALATION RT-BID [facility] Last Admin: 02/21/25 09:23 Dose: 1 puff Diazepam (Diazepam 2 Mg Tab) 1 mg PO BID [facility] Last Admin: 02/21/25 08:28 Dose: 1 mg Heparin Sodium (Porcine) (Heparin Sodium 1,000 Un/Ml (10ml Vl)) 0 unit IV PER PROTOCOL PRN; Protocol PRN Reason: Low PTT Last Admin: 02/20/25 16:16 Dose: 1,550 unit Heparin Sodium/Sodium Chloride (25,000 unit/ Sodium Chloride) 250 mls @ 7.457 mls/hr IV .Q24H [facility]; Protocol Last Admin: 02/21/25 10:16 Dose: 28 units/kg/hr, 17.4 mls/hr Naloxone HCl (Naloxone 0.4 Mg/Ml 1 Ml Vial) 0.2 mg IV Q2M PRN PRN Reason: Opioid Reversal Nicotine (Nicotine 21mg/24hr Patch) 1 patch TRANSDERM DAILY [facility] Last Admin: 02/21/25 08:28 Dose: 1 patch Trazodone HCl (Trazodone Hcl 50 Mg Tab) 50 - 100 mg PO HS PRN PRN Reason: Insomnia Social history: Lives alone. Retired from factory. Smokes about a pack a day for close to 40 years and drinks about 6-7 beers a day for close to 40 years. Physical examination: VITAL SIGNS: 98.4, 98, 16, 1 57-90, 97% room air GENERAL: BMI 24.3, sitting bed awake comfortable EYES: Pupils equal. Conjunctiva aries l. HEENT: External appearance of nose and ears normal, oral cavity grossly normal. NECK: JVD not raised; masses not palpable. HEART: First and second heart sounds are normal; some edema. LUNGS: Respiratory rate increased, diminished breath sound. ABDOMEN: [Soft, upper abdomen ill-defined mass, bowel sounds present PSYCH: Alert and oriented x3; mood and affect aries l. MUSCULOSKELETAL:No Clubbing/cyanosis;muscles-grossly intact INVESTIGATIONS, reviewed in the clinical context: February 18, 2025: White count 3.5 hemoglobin 13.3 platelets 305 sodium 131 potassium 4.1 BUN 5 creatinine 0.4 Chest x-ray film personally reviewed by me-hyperinflation. Prominent hilum Review [facility]: CT angio chest PE protocol: Heterogeneous filling appearance of the distal right main pulmonary artery extending into the right lower lobe segmental and subsegmental pulmonary arteries. Concerning for nonocclusive acute pulm embolism. No evidence of right heart strain. Mediastinal right hilar adenopath y. Right hilar adenopathy causing abrupt cut off of the right lower lobe bronchus. Trace bilateral pleural effusions. CT abdomen pelvis with contrast: Large heterogeneous enhancing posterior right u pper quadrant mass measuring 19 cm. Some focal regions of hypoattenuating suggesting intralesional hemorrhage. This causes mass effect on the surrounding structures. Difficult to distinguish origin of mass. Right infrahilar heterogeneous enhancing lesion partially visualized. Filling defect within the intrahepatic IVC corresponding to recent ultrasound. Sigmoid diverticulosis. Assessment plan - Acute pulmonary embolism secondary to underlying metastatic disease No evidence of right heart strain on CT scan. IV heparin per protocol - IV heparin monitoring per protocol - Right upper quadrant mass with possible involvement of the liver and pulmonary lymphadenopathy. Metastatic disease. Primary unknown. 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 Not for any intervention currently. . IV heparin. Patient does not want to be transferred to outside hospital. - Essential hypertension Start Cozaar 50 mg nightly - COPD in t current smoker. Moderate Started on Symbicort - Chronic nicotine dependence cigarette smoker Nicotine patch 21 - Alcohol use disorder normally drinks 6-7 beers a day. CIWA scale. Valium to 1 mg twice daily Start Cozaar 50 mg nightly. N.p.o. after midnight Past Medical History Past Medical History: No Reported History Past Surgical History: Section Smoking Status: Current every day smoker Past Alcohol Use History: Daily Past Drug Use History: None Reported
[2025-02-21] MEDS: LOSARTAN 50 MG TAB PO SCH (20:08)
--- NOTE | 2025-02-22 14:32 | P.PN ---
Subjective Progress Note Date: 02/22/25 Patient is a 64-year-old female with past medical history significant for alcohol abuse, she drinks 6-7 beers per day. She also smokes cigarettes 3-4 cigarettes per day, previously more. Over 40 year pack-year smoking history. Recently, obtained medical insurance and followed up with a primary care provi candelaria. She had some abdominal distention, and was sent for an abdominal ultrasound, which was apparently concering for mass. Increasing abdominal distention first noticed 3 or [address] [facility] for further evaluation. Apparently, she did have a CT of the abdomen/pelvis remarkable for large heterogenous enhancing posterior right upper quadrant mass measuring up to 19 cm. Some focal regions of hyperattenuation suggesting intralesional hemorrhage. No other hemorrhage identified. Loss of fat plane with posterior right hepatic lobe and possible invasion. Reportedly, difficult to distinguish origin of mass due to mass effect on surrounding structures. Additional, right infrahilar heterogenous enhancing lesion which could represent metastasis. Trace bilateral pleural effusions. A filling defect was noted within the intrahepatic IVC. Dedicated chest CT angiogram remarkable for heterogenous filling appearance of the distal right main pulmonary artery extend ing to the right lower lobe segmental and subsegmental arteries. Findings were concerning for nonocclusive acute pulmonary emboli. No CT evidence of heart strain. Mediastinal and right hilar adenopathy highly concerning for metastasis was noted. Reportedly, right hilar mass causing abrupt cut off of the right lower lobe bronchus. Only the reports from the above-mentioned imaging are available, no CD is available for review. Patient was started on IV heparin and transferred to our facility. She is currently being evaluated in the emergency department, room 4. She is on room air. Not in respiratory distress. Denies shortness of breath, cough, hemoptysis, palpitations, syncopal events, chest pain. Endorses abdominal fullness and distention. Some tenderness with palpation of the right abdomen. Denies any nausea or vomiting, diarrhea, melena, hematochezia. Appetite has been good. Denies weight loss. Vital signs are stable. The patient is seen today February 19, 2025 in follow-up on the selective care unit. She is currently sitting up in bed. Awake and alert in no acute distress. Denies any worsening shortness of breath, cough or congestion. She is maintaining good O2 saturations in the 90s on room air oxygen. She remains on a heparin drip. Remains on DuoNeb inhalations. NicoDerm patch in place. No new labs today. Plan is for interventional radiology to proceed with a biopsy of the abdominal mass. The patient is seen today February 20, 2025 in follow-up on the selective care unit. She is awake and alert in no acute distress. Currently sitting up at the bedside. Denies any worsening shortness of breath, cough or congestion. Denies any worsening abdominal discomfort. She is continued on DuoNeb inhalations, Pulmicort inhalations. She remains on a heparin drip. NicoDerm patch in place. White count 3.5. Hemoglobin 12.4. Platelets 298. The patient is seen today February 21, 2025 in follow-up on the selective care unit. She is currently sitting up in bed. Awake and alert in no acute distress. Denies any worsening shortness of breath, cough or congestion. No hemoptysis. She remains on Symbicort. Continued on a heparin drip. NicoDerm patch in place. No new labs today. Plan is for biopsy of the abdominal mass tomorrow. The patient is seen today February 22, 2025 in follow-up on the selective care unit. She remains awake and alert in no acute distress. Maintaining good O2 saturations in the 90s on room air oxygen. She is afebrile. Slightly hypert ensive. She remains on a heparin drip. Awaiting word from interventional radiology regarding the biopsy today. NicoDerm patch in place. No new labs today. Objective - Vital Signs Vital signs: Vital Signs Temp 98.2 F 02/22/25 11:24 Pulse 92 02/22/25 11:24 Resp 16 02/22/25 11:24 BP 162/89 02/22/25 11:24 Pulse Ox 98 02/22/25 11:24 FiO2 Intake & Output 02/21/25 02/22/25 02/22/25 18:59 06:59 18:59 Intake Total 970 475.38 211.62 Balance 970 475.38 211.62 Weight 64.3 kg Intake: IV 20 Invasive Line 1 10 Invasive Line 2 10 Intake, IV Titration 250 238.38 11.62 Amount Heparin Sod,Pork in 0.45% 250 238.38 11.62 NaCl 25,000 unit In 0.45 % NaCl 1 250ml.bag @ 12 UNITS/KG/HR 7.457 mls/hr IV .Q24H [facility] Rx#: [id number] Oral 720 237 180 Other: Voiding Method Toilet Toilet # Voids 1 # Bowel Movements 0 - Exam GENERAL EXAM: Alert, 64-year-old female, on room air oxygen, in no apparent distress. HEAD: Normocephalic and atraumatic EYES: Normal reaction of pupils, equal size. NOSE: Clear with pink turbinates. THROAT: No erythema or exudates. NECK: No masses, no JVD. CHEST: No chest wall deformity. LUNGS: Equal air entry with no crackles, wheeze, rhonchi or dullness. CVS: S1 and S2 normal with no audible murmur, regular rhythm. No extra heart s ounds ABDOMEN: Abdominal distention with palpable mass. No guarding or rigidity. SPINE: No scoliosis or deformity SKIN: No rashes CENTRAL NERVOUS SYSTEM: No focal deficits, tone is normal in all 4 extremities. EXTREMITIES: There is no peripheral edema, clubbing, or cyanosis. Peripheral pulses are intact. - Labs CBC & Chem 7: 02/20/25 05:53 02/18/25 04:25 Labs: Abnormal Lab Results - Last 24 Hours (Table) 02/21/25 Range/Units 22:14 APTT 37.3 H (22.0-30.0) sec Assessment and Plan Assessment: Multiple pulmonary emboli within the distal right main pulmonary artery ex tending to the right lower lobe segmental and subsegmental arteries. No CT evidence of right-sided heart strain. Additional, filling defect within the intrahepatic IVC. Mediastinal and hilar adenopathy with enlarged right hilar mass measuring 4.5 cm causing abrupt cut off of the right mainstem bronchus Nonspecific anterior right upper lobe 4 mm pulmonary nodule, could represent additional metastasis. Trace bilateral pleural effusions Large heterogenous right upper quadrant abdominal mass measuring up to 19 cm. Focal regions of hypoattenuation suggesting intralesional hemorrhage. Per the CT report difficult to distinguish origin of mass due to mass effect of surrounding structures Daily alcohol use, chronic 6 to 7, 12 ounce beers per day Chronic tobacco use, with over 50-[id number] history Plan: The patient was seen and evaluated Medications reviewed No new labs today Continued on a heparin drip Continued on Symbicort NicoDerm patch in place Stable and on room air oxygen Awaiting biopsy of the abdominal mass Possibility of 2 separate cancers being considered We will continue to follow I have personally seen and examined the patient, performed the documentation and the assessment and plan as written. Number of minutes spent on the visit: 10 Dictation was produced using [employer] dictation software. Please excuse any grammatical, word or spelling errors.
[2025-02-22 16:32] VITALS: RESP 18
--- NOTE | 2025-02-22 18:11 | P.PN ---
Subjective Progress Note Date: 02/22/25 No acute events overnight. Pt reporting no pain. Due to location of abdominal mass, IR dept recommending transfer to tertiary center. Pt is agreeable to the same Objective - Vital Signs Vital signs: Vital Signs Temp 98.2 F 02/22/25 11:24 Pulse 92 02/22/25 11:24 Resp 16 02/22/25 11:24 BP 162/89 02/22/25 11:24 Pulse Ox 98 02/22/25 11:24 FiO2 Intake & Output 02/21/25 02/22/25 02/22/25 18:59 06:59 18:59 Intake Total 970 475.38 20 Balance 970 475.38 20 Weight 64.3 kg Intake: IV 20 Invasive Line 1 10 Invasive Line 2 10 Intake, IV Titration 250 238.38 0 Amount Heparin Sod,Pork in 0.45% 250 238.38 0 NaCl 25,000 unit In 0.45 % NaCl 1 250ml.bag @ 12 UNITS/KG/HR 7.457 mls/hr IV .Q24H [facility] Rx#: [id number] Oral 720 237 Other: Voiding Method Toilet Toilet # Voids 1 # Bowel Movements 0 - Constitutional General appearance: Present: average body habitus, no acute distress - EENT Eyes: Present: anicteric sclerae, EOMI ENT: Present: hearing grossly normal - Respiratory Details: breathing is even and unlabored - Cardiovascular Details: skin warm and dry - Gastrointestinal General gastrointestinal: Present: soft. Absent: tenderness - Integumentary Integumentary: Absent: cyanotic, jaundiced - Musculoskeletal Musculoskeletal: Present: strength equal bilaterally - Psychiatric Psychiatric: Present: A&O x's 3 - Labs CBC & Chem 7: 02/20/25 05:53 02/18/25 04:25 Labs: Abnormal Lab Results - Last 24 Hours (Table) 02/21/25 Range/Units 22:14 APTT 37.3 H (22.0-30.0) sec Assessment and Plan (1) Pulmonary embolism Current Visit: Yes Status: Acute Priority: High Code(s): I26.99 - OTHER PULMONARY EMBOLISM WITHOUT ACUTE COR PULMONALE SNOMED Code(s): 61966817 Plan: Pulmonary embolism, lung lesion, abdominal mass: New finding of large abdominal mass, of unclear origin. At this time it is not known if this is primary, or represents metastasis. Similarly suspicious right lung lesion, also unknown if primary versus metastatic. Pulmonary embolus, nonocclusive, also noted. Continues on IV heparin. Plan at this time is to proceed with biopsy of the abdominal mass first, as it is more accessible. Case discussed in detail with pulmonary service. We will d iscuss with IR, if they can access this lesion. The patient will remain on IV heparin, until the biopsy is performed. Heparin can be discontinued 2 to 4 hours prior to the procedure. She can resume anticoagulation postprocedure. At this time it is not clear primary site. Pending pathology from the abdominal mass, we may need biopsy of the lung lesion. Discussed in detail with pulmonary service. -Case discussed with IR, they believe biopsy of abdominal mass is too high risk, recommending transfer to tertiary center. If biopsy is not able to be obtained here, do agree with transfer to tertiary center for further evaluation and biopsy. This was discussed with pt and she was agreeable to the same -Radiology report mentions the possibility of hemorrhage in the large abdominal mass. However, the patient's hemoglobin remains stable. Continue to monitor hemoglobin while on IV heparin.
[2025-02-22 20:03] VITALS: BP 162/80; PULSE 93; TEMP 98.5
[2025-02-22] MEDS ORDERED: LORazepam 1 MG TAB PO PRN (20:06)
--- NOTE | 2025-02-22 20:10 | P.PN ---
Progress Note - Text Progress Note Date: 02/22/25 Chief Complaint: Abdominal mass Pleasant 64-year-old patient who follows with Dr. Rafaela Elizabeth. Patient did not have insurance had noticed that her abdomen had been increasing in size for about 2 months. Appetite is fair. No change in bowel pattern. Occasionally short of breath strictly doing stairs. Some lower extremity edema for about a month. She got insurance and finally decided to see a family doctor. daily smoker and daily alcohol use 6-7 beers a day . sent for abdominal ultrasound that showed a abdominal mass. She was told to go to the emergency department and had gone to [facility]. - chest CTA which was concerning for pulmonary embolism right hilar adenopathy right upper lobe 4 mm pulmonary nodule trace bilateral pleural effusions and CAT scan of the abdomen pelvis with contrast reported large heterogeneous enhancing right upper quadrant mass measuring up to 19 cm with focal regions of hyperattenuating suggesting intralesional hemorrhage. Also right infrahilar heterogeneous enhancing lesion and filling defect within the intrahepatic IVC corresponding to recent ultrasound favored to represent thrombus. Vascular surgery was consulted States that [facility] wanted to transfer her down to [facility] however she did not want to go there secondary to her passing away there about a year ago and requested to be transferred to [facility]. She currently denies any abdominal pain, chest pain,. started on IV heparin drip and transferred to this facility Patient seen and daughter at the bedside. February 19: Sitting in bed. Getting IV heparin. Discussed with Dr. Jauregui. For biopsy on Saturday when heparin will be held. Given the clinical presentation radiological finding possibility of 2 malignancies. Breathing better. On Valium for DVT prophylaxis February 20: Up in the bed. IV heparin. For biopsy on Saturday. Breathing stable. Will switch the patient from nebulizers to Symbicort. 2 of her sisters are visiting. Patient cheerful cut back Valium to 1 mg twice daily February 21: Getting IV heparin. No new issues. On Symbicort. Will make n.p.o. after midnight. Spoke to nurse to follow-up in the morning with interventional radiology. Blood pressure has been running on the higher side. Will add Cozaar February 22: This morning per interventional radiologist patient very high risk for bleeding because of the vascular nature of the tumor. I spoke to Dr. Tellez from interventional radiology. He said the mass appears to be coming from the adrenal gland. High vascularity. Spoke to Prosper Levi from social work case manager. Later in the day I [facility] [place] They are waiting for radiology pictures. Otherwise will accept the patient. Earlier I just spoke to the patient. Also spoke to the pulmonary team of Dr. HUMPHREYS. And the nurse. IV heparin was resumed. Blood pressure running high hence hydralazine further added. Cozaar was started yesterday. Increase Cozaar to 100 mg nightly. Also DC Valium. Add Ativan as needed. Total time spent today over 1 hour with over 45 minutes of discussion. Active Medications Acetaminophen (Acetaminophen Tab 325 Mg Tab) 650 mg PO Q6HR PRN PRN Reason: Fever and/ or Pain Last Admin: 02/22/25 19:27 Dose: 650 mg Diazepam (Diazepam 2 Mg Tab) 1 mg PO BID [facility] Last Admin: 02/22/25 20:01 Dose: 1 mg Heparin Sodium (Porcine) (Heparin Sodium 1,000 Un/Ml (10ml Vl)) 0 unit IV PER PROTOCOL PRN; Protocol PRN Reason: Low PTT Last Admin: 02/20/25 16:16 Dose: 1,550 unit Hydralazine HCl (Hydralazine Hcl 25 Mg Tab) 25 mg PO TID MATTHEW Last Admin: 02/22/25 17:44 Dose: 25 mg Heparin Sodium/Sodium Chloride (25,000 unit/ Sodium Chloride) 250 mls @ 7.457 mls/hr IV .Q24H MATTHEW; Protocol Last Admin: 02/22/25 13:07 Dose: 28 units/kg/hr, 17.4 mls/hr Losartan Potassium (Losartan 50 Mg Tab) 50 mg PO HS [facility] Last Admin: 02/22/25 20:01 Dose: 50 mg Naloxone HCl (Naloxone 0.4 Mg/Ml 1 Ml Vial) 0.2 mg IV Q2M PRN PRN Reason: Opioid Reversal Nicotine (Nicotine 21mg/24hr Patch) 1 patch TRANSDERM DAILY [facility] Last Admin: 02/22/25 09:23 Dose: 1 patch Trazodone HCl (Trazodone Hcl 50 Mg Tab) 50 - 100 mg PO HS PRN PRN Reason: Insomnia Social history: Lives alone. Retired from factory. Smokes about a pack a day for close to 40 years and drinks about 6-7 beers a day for close to 40 years. Physical examination: VITAL SIGNS: 97.8, 97, 18, 173 x 98, 99% room air GENERAL: BMI 24.3, sitting bed awake comfortable EYES: Pupils equal. Conjunctiva aries l. HEENT: External appearance of nose and ears normal, oral cavity grossly normal. NECK: JVD not raised; masses not palpable. HEART: First and second heart sounds are normal; some edema. LUNGS: Respiratory rate increased, diminished breath sound. ABDOMEN: [Soft, upper abdomen ill-defined mass, bowel sounds present PSYCH: Alert and oriented x3; mood and affect aries l. MUSCULOSKELETAL:No Clubbing/cyanosis;muscles-grossly intact INVESTIGATIONS, reviewed in the clinical context: February 18, 2025: White count 3.5 hemoglobin 13.3 platelets 305 sodium 131 potassium 4.1 BUN 5 creatinine 0.4 Chest x-ray film personally reviewed by me-hyperinflation. Prominent hilum [facility]: CT angio chest PE protocol: Heterogeneous filling appearance of the distal right main pulmonary artery extending into the right lower lobe segmental and subsegmental pulmonary arteries. Concerning for nonocclusive acute pulm embolism. No evidence of right heart strain. Mediastinal right hilar adenopathy. Right hilar adenopathy causing abrupt cut off of the right lower lobe bronchus. Trace bilateral pleural effusions. CT abdomen pelvis with contrast: Large heterogeneous enhancing posterior right upper quadrant mass measuring 19 cm. Some focal regions of hypoattenuating suggesting intralesional hemorrhage. This causes mass effect on the surrounding structures. Difficult to distinguish origin of mass. Right infrahilar heterogeneous enhancing lesion partially visualized. Filling defect within the intrahepatic IVC corresponding to recent ultrasound. Sigmoid diverticulosis. Assessment plan - Acute pulmonary embolism secondary to underlying metastatic disease No evidence of right heart strain on CT scan. IV heparin per protocol - IV heparin monitoring per protocol - Right upper quadrant mass with possible involvement of the liver and pulmonary lymphadenopathy. Metastatic disease. Primary unknown. Reviewed CT scan with Dr. Narayan today. Possible large vascular adrenal mass. Pushing on the liver. 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 Not for any intervention currently. . IV heparin. Patient does not want to be transferred to outside hospital initially. - Essential hypertension, uncontrolled Increase Cozaar to 100 mg nightly. Add hydralazine 25 mg 3 times daily - COPD in t current smoker. Moderate Symbicort - Chronic nicotine dependence cigarette smoker Nicotine patch 21 - Alcohol use disorder normally drinks 6-7 beers a day. CIWA scale. DC Valium. Ativan 1 mg every 8 as needed -Full code Plan for patient to get transferred to [facility] in [place]. As it is fine to felt to be very high risk biopsy at this hospital. IV heparin. CBC ordered. For blood pressure hydralazine added. Cozaar increased to 100 mg nightly. Past Medical History Past Medical History: No Reported History Past Surgical History: Section Smoking Status: Current every day smoker Past Alcohol Use History: Daily Past Drug Use History: None Reported
[2025-02-22 20:59] LABS: HCT 38.6 % (37.2-46.3); HGB 12.5 g/dL (12.0-15.0); MCH 25.7 pg (27.0-32.0); MCHC 32.4 g/dL (32.0-37.0); MCV 79.3 fL (80.0-97.0); Platelet Count 267 10*3/uL (140-440); RBC 4.87 10*6/uL (4.10-5.20); RDW 16.3 % (11.5-14.5); WBC 3.34 10*3/uL (4.50-10.00)
[2025-02-22] MEDS: LOSARTAN 50 MG TAB PO SCH (21:36)
--- NOTE | 2025-02-23 19:54 | P.DS ---
Providers Date of admission: 02/17/25 17:11 Expected date of discharge: 02/22/25 Attending physician: Kwan Garza Consults: 02/17/25 17:11 Consult Physician Routine Consulting Provider: Rosangela Keith Consult Reason/Comments: ivc thrombus Do you want consulting provider notified?: Yes Consult Physician Urgent Consulting Provider: Larisa Cross Consult Reason/Comments: pe Do you want consulting provider notified?: Yes Consult Physician Urgent Consulting Provider: Mahendra Jauregui Consult Reason/Comments: oncological Do you want consulting provider notified?: Yes Primary care physician: Rafaela Elizabeth [facility] Course: Chief Complaint: Abdominal mass Pleasant 64-year-old patient who follows with Dr. Rafaela Elizabeth. Patient did not have insurance had noticed that her abdomen had been increasing in size for about 2 months. Appetite is fair. No change in bowel pattern. Occasionally short of breath strictly doing stairs. Some lower extremity edema for about a month. She got insurance and finally decided to see a family doctor. daily smoker and daily alcohol use 6-7 beers a day . sent for abdominal ultrasound that showed a abdominal mass. She was told to go to the emergency department and had gone to [facility]. - chest CTA which was concerning for pulmonary embolism right hilar adenopathy right upper lobe 4 mm pulmonary nodule trace bilateral pleural effusions and CAT scan of the abdomen pelvis with contrast reported large heterogeneous enhancing right upper quadrant mass measuring up to 19 cm with focal regions of hyperattenuating suggesting intralesional hemorrhage. Also right infrahilar heterogeneous enhancing lesion and filling defect within the intrahepatic IVC corresponding to recent ultrasound favored to represent thrombus. Vascular surgery was consulted States that [facility] wanted to transfer her down to [facility] however she did not want to go there secondary to her passing away there about a year ago and requested to be transferred to [facility]. She currently denies any abdominal pain, chest pain,. started on IV heparin drip and transferred to this facility Patient seen and daughter at the bedside. February 19: Sitting in bed. Getting IV heparin. Discussed with Dr. Madison For biopsy on Saturday when heparin will be held. Given the clinical presentation radiological finding possibility of 2 malignancies. Breathing better. On Valium for DVT prophylaxis February 20: Up in the bed. IV heparin. For biopsy on Saturday. Breathing stable. Will switch the patient from nebulizers to Symbicort. 2 of her sisters are visiting. Patient cheerful cut back Valium to 1 mg twice daily February 21: Getting IV heparin. No new issues. On Symbicort. Will make n.p.o. after midnight. Spoke to nurse to follow-up in the morning with interventional radiology. Blood pressure has been running on the higher side. Will add Cozaar February 22: This morning per interventional radiologist patient very high risk for bleeding because of the vascular nature of the tumor. I spoke to Dr. Tellez from interventional radiology. He said the mass appears to be coming from the adrenal gland. High vascularity. Spoke to Prosper Levi from social welfare research worker. Later in the day I spoke to transfer team at [facility]ike at [place]. They are waiting for radiology pictures. Otherwise will accept the patient. Earlier I just spoke to the patient. Also spoke to the pulmonary team of Dr. HUMPHREYS. And the nurse. IV heparin was resumed. Blood pressure running high hence hydralazine further added. Cozaar was started yesterday. Increase Cozaar to 100 mg nightly. Also DC Valium. Add Ativan as needed. Total time spent today over 1 hour with over 45 minutes of discussion. Late at night patient was accepted at [facility] and transferred. Social history: Lives alone. Retired from factory. Smokes about a pack a day for close to 40 years and drinks about 6-7 beers a day for close to 40 years. Physical examination: VITAL SIGNS: 97.8, 97, 18, 173 x 98, 99% room air GENERAL: BMI 24.3, sitting bed awake comfortable EYES: Pupils equal. Conjunctiva aries l. HEENT: External appearance of nose and ears normal, oral cavity grossly normal. NECK: JVD not raised; masses not palpable. HEART: First and second heart sounds are normal; some edema. LUNGS: Respiratory rate increased, diminished breath sound. ABDOMEN: [Soft, upper abdomen ill-defined mass, bowel sounds present PSYCH: Alert and oriented x3; mood and affect aries l. MUSCULOSKELETAL:No Clubbing/cyanosis;muscles-grossly intact INVESTIGATIONS, reviewed in the clinical context: February 18, 2025: White count 3.5 hemoglobin 13.3 platelets 305 sodium 131 potassium 4.1 BUN 5 creatinine 0.4 Chest x-ray film personally reviewed by me-hyperinflation. Prominent hilum [facility]: CT angio chest PE protocol: Heterogeneous filling appearance of the distal right main pulmonary artery extending into the right lower lobe segmental and subsegmental pulmonary arteries. Concerning for nonocclusive acute pulm embolism. No evidence of right heart strain. Mediastinal right hilar adenopathy. Right hilar adenopathy causing abrupt cut off of the right lower lobe bronchus. Trace bilateral pleural effusions. CT abdomen pelvis with contrast: Large heterogeneous enhancing posterior right upper quadrant mass measuring 19 cm. Some focal regions of hypoattenuating suggesting intralesional hemorrhage. This causes mass effect on the surrounding structures. Difficult to distinguish origin of mass. Right infrahilar heterogeneous enhancing lesion partially visualized. Filling defect within the intrahepatic IVC corresponding to recent ultrasound. Sigmoid diverticulosis. Assessment plan - Acute pulmonary embolism secondary to underlying metastatic disease No evidence of right heart strain on CT scan. IV heparin per protocol - IV heparin monitoring per protocol - Right upper quadrant mass with possible involvement of the liver and pulmonary lymphadenopathy. Metastatic disease. Primary unknown. Reviewed CT scan with Dr. Narayan today. Possible large vascular adrenal mass. Pushing on the liver. 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 Not for any intervention currently. . IV heparin. Patient does not want to be transferred to outside hospital initially. - Essential hypertension, uncontrolled Increase Cozaar to 100 mg nightly. Add hydralazine 25 mg 3 times daily - COPD in t current smoker. Moderate Symbicort - Chronic nicotine dependence cigarette smoker Nicotine patch 21 - Alcohol use disorder normally drinks 6-7 beers a day. CIWA scale. DC Valium. Ativan 1 mg every 8 as needed -Full code Disposition: [facility]. Transferred for higher level of care Past Medical History Past Medical History: No Reported History Past Surgical History: Section Smoking Status: Current every day smoker Past Alcohol Use History: Daily Past Drug Use History: None Reported Plan - Discharge Summary Discharge Rx Participant: Yes New Discharge Prescriptions: No Action traZODone HCL [Desyrel] 50 - 100 mg PO DIRECTED PRN PRN Reason: Insomnia Discharge Medication List traZODone HCL [Desyrel] 50 - 100 mg PO DIRECTED PRN 02/17/25 [History] Follow up Appointment(s)/Referral(s): Rafaela Elizabeth MD [Primary Care Provider] - 1-2 days Discharge Disposition: TRANSFER TO SHORT TERM HOSP
== END 2025-02-22 22:09 | disposition short-term general hospital (02) | DRG 134 ==
LOC: SUPCPDRO 16:08 → EC 16:08 → 3SCARD 17:11
PROVIDERS: ADMIT Hospitalist; ATTEND Hospitalist
DX: I26.99 Other pulmonary embolism without acute cor pulmonale (principal); I82.220 Acute embolism and thrombosis of inferior vena cava; R19.01 Right upper quadrant abdominal swelling, mass and lump; R91.1 Solitary pulmonary nodule; C78.7 Secondary malignant neoplasm of liver and intrahepatic bile duct; C77.1 Secondary and unspecified malignant neoplasm of intrathoracic lymph nodes; E27.8 Other specified disorders of adrenal gland; J44.9 Chronic obstructive pulmonary disease, unspecified; F17.210 Nicotine dependence, cigarettes, uncomplicated; I10 Essential (primary) hypertension; F10.10 Alcohol abuse, uncomplicated
CPT/HCPCS: 71045; 80048; 80053; 82150; 83690; 83735; 85025; 85027; 85610; 85730; 94640; 96365; 96366; 96372; 96375; 99291